=== PATIENT | female | born 1940 | race Hispanic/Latino ===

== ENCOUNTER 2017-08-25 12:42 | Inpatient (IN) | payer MEDICARE, OTHER ==
[~2017-08-25] VITALS: Ht 167.6 cm; Wt 88.1 kg
--- OUTSIDE RECORDS SUMMARY | 2017-08-25 12:45 | XMS REPORT ---
[facility] Address Unknown Phone Unavailable Care Team Providers Care Pipe Stripper Name Role Phone Unavailable Unavailable Problems This patient has no known problems. Allergies, Adverse Reactions, Alerts This patient has no known allergies or adverse reactions. Medications This patient has no known medications. Encounters Start Date/Time End Date/Time Encounter Type Admission Type Attending [facility] Care Department Encounter ID 2017-09-06 00:00:00 2017-09-06 00:00:00 Outpatient [facility] [id number] 2017-09-06 00:00:00 2017-09-06 00:00:00 Outpatient [facility] [id number] 2017-08-31 00:00:00 2017-08-31 00:00:00 Outpatient [facility] [id number] 2017-07-26 00:00:00 2017-07-26 00:00:00 Outpatient [facility] [id number] 2017-07-26 00:00:00 2017-07-26 00:00:00 Outpatient [facility] [id number] 2017-07-21 00:00:00 2017-07-21 00:00:00 Outpatient [facility] [id number] 2017-06-28 00:00:00 2017-06-28 00:00:00 Outpatient [facility] [id number] 2017-06-28 00:00:00 2017-06-28 00:00:00 Outpatient [facility] [id number] 2017-06-23 00:00:00 2017-06-23 00:00:00 Outpatient [facility] [id number] 2017-06-03 08:54:33 2017-06-03 08:54:33 Outpatient [facility] [id number] 2017-06-02 00:00:00 2017-06-02 00:00:00 Outpatient [facility] [id number] 2017-06-02 00:00:00 2017-06-02 00:00:00 Outpatient [facility] [id number] 2017-05-31 17:04:35 2017-05-31 17:04:35 Emergency [facility] [id number] 2017-05-31 15:01:34 2017-05-31 15:01:34 Outpatient [facility] [id number] 2017-05-31 00:00:00 2017-05-31 00:00:00 Emergency [facility] [id number] 2017-05-31 00:00:00 2017-05-31 00:00:00 Emergency [facility] [id number] 2017-05-24 10:22:59 2017-05-24 10:22:59 Outpatient [facility] [id number] 2017-05-03 13:38:41 2017-05-03 13:38:41 Emergency [facility] [id number] 2017-04-28 09:35:09 2017-04-28 09:35:09 Outpatient [facility] [id number] 2017-04-12 00:00:00 2017-04-12 00:00:00 Outpatient [facility] [id number] 2017-04-12 00:00:00 2017-04-12 00:00:00 Outpatient [facility] [id number] 2017-04-12 00:00:00 2017-04-12 00:00:00 Outpatient [facility] [id number] 2017-03-31 16:28:45 2017-03-31 16:28:45 Outpatient [facility] [id number] 2017-03-31 16:04:29 2017-03-31 16:04:29 Outpatient [facility] [id number] 2017-03-10 08:41:17 2017-03-10 08:41:17 Outpatient [facility] [id number] 2017-03-01 00:00:00 2017-03-01 00:00:00 Outpatient [facility] [id number] 2017-03-01 00:00:00 2017-03-01 00:00:00 Outpatient [facility] [id number] 2017-02-25 15:17:23 2017-02-25 15:17:23 Outpatient [facility] [id number] 2017-02-24 09:00:17 2017-02-24 09:00:17 Outpatient [facility] [id number] 2017-01-20 08:52:36 2017-01-20 08:52:36 Outpatient [facility] [id number] 2016-11-30 00:00:00 2016-11-30 00:00:00 Outpatient [facility] [id number] 2016-11-30 00:00:00 2016-11-30 00:00:00 Outpatient [facility] [id number] 2016-11-18 00:00:00 2016-11-18 00:00:00 Outpatient [facility] [id number] 2016-11-12 10:29:35 2016-11-12 10:29:35 Outpatient [facility] [id number] 2016-10-23 07:49:21 2016-10-23 07:49:21 Outpatient [facility] [id number] 2016-10-23 00:00:00 2016-10-23 00:00:00 Outpatient [facility] [id number] 2016-10-07 00:00:00 2016-10-07 00:00:00 Outpatient [facility] [id number] 2016-09-21 14:39:27 2016-09-21 14:39:27 Outpatient [facility] [id number] 2016-09-21 13:43:21 2016-09-21 13:43:21 Outpatient [facility] [id number] 2016-09-21 08:50:16 2016-09-21 08:50:16 Outpatient [facility] [id number] 2016-08-28 07:57:51 2016-08-28 07:57:51 Outpatient [facility] [id number] 2016-08-28 00:00:00 2016-08-28 00:00:00 Outpatient [facility] [id number] 2016-08-24 14:38:35 2016-08-24 14:38:35 Outpatient [facility] [id number] 2016-08-24 13:17:51 2016-08-24 13:17:51 Outpatient [facility] [id number] 2016-08-10 10:01:21 2016-08-10 10:01:21 Outpatient [facility] [id number] 2016-08-07 09:53:20 2016-08-07 09:53:20 Outpatient [facility] [id number] 2016-08-06 08:59:19 2016-08-06 08:59:19 Outpatient [facility] [id number] 2016-07-06 13:26:51 2016-07-06 13:26:51 Outpatient [facility] [id number] 2016-07-03 16:10:21 2016-07-03 16:10:21 Emergency [facility] [id number] 2016-06-30 01:12:28 2016-06-30 01:12:28 Emergency [facility] [id number]
[2017-08-25] MEDS ORDERED: ASPIRIN 81 MG CHEW TAB PO ONE ×2 (13:15→15:30)
--- NOTE | 2017-08-25 13:50 | Diagnostic Imaging Report ---
PROCEDURE:CHEST SINGLE (PORTABLE) TECHNIQUE:Portable AP chest INDICATION:Shortness of breath COMPARISON:None. FINDINGS: Low lung volume with vascular crowding. Upper limits of normal heart size for technique. Normal central vasculature caliber. Intact skeleton. CONCLUSION: No acute abnormality. Dictated by: Peter Naqvi M.D. on 08/25/2017 at 13:52 Electronically approved by: Peter Naqvi M.D. on 08/25/2017 at 13:52
[2017-08-25 14:26] LABS: BASOPHILS % 0.3 % (0.0-1.0); EOSINOPHILS # (AUTO) 0.1 (0.0-0.4); EOSINOPHILS % 1.9 % (0.0-6.0); LYMPHOCYTES # (AUTO) 1.2 (1.0-3.2); MEAN CORPUSCULAR HEMOGLOBIN 31.6 pg (28-32); MEAN CORPUSCULAR HGB CONC 32.6 g/dL (31-35); MEAN CORPUSCULAR VOLUME 96.9 fL (81-99); MONOCYTES # (AUTO) 0.5 (0.2-0.8); MONOCYTES % 14.5 % (4.4-11.3); NEUTROPHILS # (AUTO) 1.9 (2.1-6.9); PLATELET COUNT 105 x10e3/uL (140-360); RED BLOOD COUNT 2.28 x10e6/uL (3.6-5.1); RED CELL DISTRIBUTION WIDTH 17.1 % (11.7-14.4)
[2017-08-25 14:27] LABS: HEMATOCRIT 22.1 % (34.2-44.1); HEMOGLOBIN 7.2 g/dL (12.0-16.0)
[2017-08-25 14:34] LABS: INR 1.22; PROTHROMBIN TIME 14.5 seconds (11.9-14.5)
[2017-08-25 14:35] LABS: PARTIAL THROMBOPLASTIN TIME 51.3 seconds (23.8-35.5)
[2017-08-25 14:39] LABS: ALANINE AMINOTRANSFERASE 19 IU/L (0-55); ALBUMIN 3.3 g/dL (3.5-5.0); ALKALINE PHOSPHATASE 76 IU/L (40-150); ANION GAP 9.4 mmol/L (8-16); BLOOD UREA NITROGEN 17 mg/dL (7-26); BUN/CREATININE RATIO 22 (6-25); CALCIUM 8.5 mg/dL (8.4-10.2); CARBON DIOXIDE 28 mmol/L (22-29); CHLORIDE 107 mmol/L (98-107); CREATINE KINASE 107 IU/L (29-168); CREATININE, SERUM 0.76 mg/dL (0.57-1.11); EST GLOMERULAR FILTRATION RATE > 60 ML/MIN (60-); GLUCOSE 105 mg/dL (74-118); POTASSIUM 4.4 mmol/L (3.5-5.1); SODIUM 140 mmol/L (136-145)
[2017-08-25] MEDS ORDERED: POTASSIUM CHLO10 ME1 PO (16:10)
[2017-08-25] MEDS ORDERED: LISINOPRIL2.5 MG PO (16:10)
[2017-08-25] MEDS ORDERED: LASIX40 MG PO (16:12)
[2017-08-25] MEDS ORDERED: LIPITOR20 MG (16:12)
[2017-08-25 17:15] VITALS: BP 119/54
[2017-08-25 18:16] VITALS: BP 119/54
[2017-08-25 20:00] VITALS: BP 122/58
--- NOTE | 2017-08-25 20:17 | History and Physical ---
CHIEF COMPLAINT: Shortness of breath. HPI: Ms. Kolb is a Kazakh 76-year-old Kazakh-speaking female. She presented to the emergency room with shortness of breath and there, was found to be anemic. She reports the family is with the patient and reported that she had problem with GI bleed in the past and has been worked up at [facility], and also has problem with epistaxis in the past as well. However, right now, she does not have any nasal bleed. She reports that off and on, she has blood in the stool. She denies any nausea, vomiting, diarrhea or focal weakness. REVIEW OF SYSTEMS GENERAL: Denies any fevers, chills. HEAD: Denies any head trauma. ENT: Denies any earaches. CVS: Denies any chest pain. RESPIRATORY: Shortness of breath. GI: Denies any nausea, vomiting. REST OF THE REVIEW SYSTEMS: Negative except as in HPI. PAST MEDICAL HISTORY: Hypertension, hyperlipidemia. PAST SURGICAL HISTORY: None. FAMILY AND SOCIAL HISTORY: She has history of smoking, quit 18 years ago. She smoked for 35+ years. Lives with the family. Denies any family history of heart disease. PHYSICAL EXAM VITAL SIGNS: Temperature 96.5, pulse of 65, blood pressure 119/54, respiratory rate of 18, O2 sat 98% on room air. HEENT: Head atraumatic, normocephalic. NECK: Supple with no JVD. Thyroid not enlarged. CHEST: Clear to auscultation bilaterally. No wheezing. No crackles. HEART: S1, S2 audible. Possible murmur. ABDOMEN: Soft, nontender, nondistended, bowel sounds audible. EXTREMITIES: No clubbing, cyanosis or edema. NEUROLOGIC: Awake and alert. No focal neurologic deficit. LABS: Sodium 140, potassium 4.4, chloride 107. AST 41, ALT 19. White count of 3.6, hemoglobin 7.2, platelets 105,000. Chest x-ray is normal. ASSESSMENT: Ms. Cortes Nick is a 76-year-old female, who presented to the emergency room with shortness of breath. First set of cardiac enzymes negative, likely reason for dyspnea could be anemia. Patient has history of gastrointestinal bleed in the past. Currently, appears to be pancytopenic. Platelet counts are also low. Etiology is not very clear. PLAN 1. GI consult to rule out GI bleed. 2. I will also consult hematology for pancytopenia. 3. Cardiology has been consulted from the emergency room. First set of cardiac enzymes is negative. Will follow cardiac enzymes. Discussed with patient's family at bedside in detail. Job#: [id number] CQ
--- NOTE | 2017-08-25 21:17 | Consultation ---
DATE OF CONSULTATION: August 25, 2017 REFERRING PHYSICIAN: Dr. Jhonatan Mancia. REASON FOR CONSULTATION: 1. Anemia. 2. Recent melena. 3. ANAND liver cirrhosis. HISTORY OF PRESENTING ILLNESS: A 76-year-old speaking female who got admitted today with complaints of easy fatigability, shortness of breath on minimal exertion. Blood work revealed anemia with hemoglobin of 7.2. GI has been consulted for further evaluation and workup for anemia. On further questioning, the patient stated that she was admitted to [facility] in May when she had multiple episodes of melena. She has had upper endoscopy as well as colonoscopy. She does not have the report with her. Most of my history derived through the patient's son who can speak [place]. As per the patient's son, the colonoscopy was negative. Upper endoscopy showed some kind of vein which was ligated. From what he described, it seems like the patient might of had esophageal varices which were banded. The patient was supposed to have a repeat upper endoscopy at [facility] after she was discharged from the hospital. Due to some insurance issues, repeat procedure could not be done in outpatient setting. Per the patient's son, the upper endoscopy is due for surveillance at this time. The patient has no known prior history of peptic ulcer disease. She does not take NSAIDs on a chronic basis. While she was in [facility], she was also told that she has liver cirrhosis. The patient seldom drinks alcohol. Liver cirrhosis is likely related to ANAND. REVIEW OF SYSTEMS: Twelve-point system reviewed. Symptomatology is limited as per HPI. PAST MEDICAL HISTORY: Hypertension, hyperlipidemia, probable congestive heart failure. PAST SURGICAL HISTORY: Recent upper endoscopy and colonoscopy. FAMILY HISTORY: Noncontributory. SOCIAL HISTORY: No smoking, alcohol or any illicit drug use. HOME MEDICATIONS: Atorvastatin, furosemide, lisinopril, potassium chloride. INPATIENT MEDICATION: Atorvastatin, lisinopril, baby aspirin, which was discontinued. ALLERGIES: ACETAMINOPHEN, EXACT ALLERGIC REACTION NOT KNOWN. PHYSICAL EXAMINATION VITAL SIGNS: Temperature 96.5, pulse 65, respirations 16, blood pressure 119/54, oxygen saturation 98% on room air. GENERAL: Not in any acute distress, gross pallor. HEENT: Moist mucous membranes. Anicteric sclerae. CVS: S1 and S2 regular with 3/6 flow murmur at the apex, nonradiating. LUNGS: Bilaterally grossly clear. ABDOMEN: Soft, obese, nondistended, nontender, no palpable mass or hernia, no palpable hepatosplenomegaly, no digitally appreciable shifting dullness. EXTREMITIES: Trace leg edema. LABORATORY DATA: WBC 3.66, hemoglobin 7.2, hematocrit 22.1, MCV 96.9, platelet count 105,000, sodium 140, potassium 4.4, chloride 107, bicarb 28, BUN 17, creatinine 0.76, glucose 105. Liver enzymes showed a total bilirubin of 1.1, AST 41, ALT 19, alkaline phosphatase 76. Troponin negative. PT 14.5. INR 1.22. Chest x-ray no acute cardiopulmonary process. IMPRESSION: Anemia with thrombocytopenia in the setting of ANAND liver cirrhosis, recent melena. Upper endoscopy and colonoscopy performed at [facility] in May, what the patient's son described it seems like the patient has had upper endoscopy and colonoscopy done secondary to recurrent episodes of melena in May. Upper endoscopy, she had some kind of vein ligation in the esophagus, which seems the patient probably had esophageal variceal band ligation. PLAN: As per the patient's son, repeat upper endoscopy is due at this time. Anemia could be due to slow oozing from portal hypertensive gastropathy. At this point in time, the patient does not have any active bleeding, therefore, no point of starting her on any octreotide or Protonix infusion. Will keep her n.p.o. past midnight. Will do upper endoscopy tomorrow. Further recommendations based upon endoscopy findings. Job#: [id number] GH SANTIAGO
[2017-08-25 21:23] VITALS: BP 122/58
[2017-08-25] MEDS: ATORVASTATIN 20 MG TAB PO SCH (21:23)
[2017-08-25 23:09] LABS: CREATINE KINASE MB 1.2 ng/mL (0-5.0)
[2017-08-26] VITALS (16 sets, daily range): BP systolic 100–135; BP diastolic 49–61
[2017-08-26 08:17] LABS: CHOL/HDL RATIO 2.8 (3.0-3.6)
[2017-08-26] MEDS: LISINOPRIL 2.5 MG TAB PO SCH (08:19)
[2017-08-26 09:35] LABS: EOSINOPHILS # (AUTO) 0.1 (0.0-0.4); EOSINOPHILS % 2.9 % (0.0-6.0); LYMPHOCYTES # (AUTO) 1.1 (1.0-3.2); LYMPHOCYTES % 38.2 % (18.0-39.1); MEAN CORPUSCULAR HEMOGLOBIN 31.6 pg (28-32); MEAN CORPUSCULAR HGB CONC 32.4 g/dL (31-35); MEAN CORPUSCULAR VOLUME 97.6 fL (81-99); MONOCYTES # (AUTO) 0.4 (0.2-0.8); MONOCYTES % 14.9 % (4.4-11.3); NEUTROPHILS # (AUTO) 1.2 (2.1-6.9); NEUTROPHILS % 43.6 % (38.7-80.0); PLATELET COUNT 84 x10e3/uL (140-360); RED BLOOD COUNT 2.09 x10e6/uL (3.6-5.1)
[2017-08-26 09:46] LABS: HEMATOCRIT 20.4 % (34.2-44.1); HEMOGLOBIN 6.6 g/dL (12.0-16.0)
[2017-08-26 09:47] LABS: % IRON SATURATION 4 % (15-50); IRON 14 ug/dL (50-170); TOTAL IRON BINDING CAPACITY 337 ug/dL (261-478); TRANSFERRIN 241 mg/dL (180-382)
[2017-08-26] MEDS ORDERED: SODIUM CHLORIDE 0.9% 250ML 250 ML IV ONE (11:30)
[2017-08-26] MEDS ORDERED: FUROSEMIDE INJ 10 MG/ML 2 ML VIAL IV PRN (11:30)
--- NOTE | 2017-08-26 12:56 | Consultation ---
DATE OF CONSULTATION: CARDIOLOGY CONSULTATION ATTENDING PHYSICIAN: Himanshu Brar MD CLINICAL HISTORY: This is a 76-year-old woman admitted via the emergency room because of progressive shortness of breath with the patient found to be pancytopenic with hemoglobin 7.2, white count of 3.6 and platelet count of 105. This patient apparently has history of cirrhosis of the liver status post multiple procedures done in the past. She has been followed at [facility] and in May of this year had banding and sclerosis of the esophageal varices. There is history of previous GI bleeding as well as epistaxis. Additionally 18 years ago she was briefly on dialysis for unknown reasons although her kidneys appear to have recovered since. While she was at [facility] she was told that she had narrowing of the aorta or the aortic valve. Surgery was recommended but the patient declined but at the same time she denies having had a cardiac catheterization. The diagnosis apparently made by CT scan or ultrasound. She has a chronic loud heart murmur. Cardiology consultation requested. PAST MEDICAL HISTORY: Remarkable for hypertension, hyperlipidemia, unclear aortic or aortic valve pathology. PAST SURGICAL HISTORY: Noncontributory. FAMILY HISTORY: Noncontributory. PERSONAL / SOCIAL HISTORY: She rarely drinks. Has not smoked for 18 years. Prior to that she smoked for 35 years. No drug abuse. MEDICATIONS: Now include aspirin, lisinopril, atorvastatin. ALLERGIES: ACETAMINOPHEN. REVIEW OF SYSTEMS: Noncontributory. PHYSICAL EXAMINATION GENERAL: She is alert, coherent, appears to be comfortable. CARDIAC: Jugular veins were not distended. S1, S2 were regular. There is a 3/6 pansystolic murmur heard throughout the anterior chest even into the lateral chest. ABDOMEN: Soft. Bowel sounds are present. EXTREMITIES: No cyanosis, clubbing or edema. LABORATORY DATA: The electrocardiogram was normal. Chest x-ray, please see the report. IMPRESSION 1. Shortness of breath likely to be related to anemia with possibility of valvular pathology contributing. 2. Loud heart murmur. Consider aortic stenosis as well as possible mitral valvular pathology. 3. Unclear history of "bend in the aortic vein." 4. Pancytopenia possibly related to cirrhosis. 5. History of gastrointestinal bleeding status post sclerosis of esophageal varices and banding. 6. Cirrhosis of the liver. 7. Hypertension. 8. Distant history of dialysis 18 years ago with renal function that appears to have complete recovery. RECOMMENDATION: Echocardiogram to assess aortic and mitral valves. Consider old records review from [facility] including the CT scan with particular attention to the aorta. Iron TIBC may be helpful. ION LEWIS MD Job#: [id number] DG cc:KATHLEEN FLOR M.D.
[2017-08-26] MEDS ORDERED: PROPOFOL IV EMULSION 10 MG/ML 20 ML VIAL ONE (18:52)
[2017-08-26] MEDS ORDERED: LIDOCAINE HCL 2% LOCAL INJ 5 ML SDV VIAL INJ ONE (18:52)
[2017-08-26] MEDS: ATORVASTATIN 20 MG TAB PO SCH (21:50)
[2017-08-27] VITALS: BP 120/58
[2017-08-27 00:35] VITALS: BP 129/58
[2017-08-27 04:00] VITALS: BP 112/56
[2017-08-27 06:55] LABS: BASOPHILS % 0.3 % (0.0-1.0); EOSINOPHILS # (AUTO) 0.1 (0.0-0.4); EOSINOPHILS % 2.7 % (0.0-6.0); HEMATOCRIT 25.9 % (34.2-44.1); HEMOGLOBIN 8.5 g/dL (12.0-16.0); LYMPHOCYTES % 31.7 % (18.0-39.1); MEAN CORPUSCULAR HEMOGLOBIN 29.3 pg (28-32); MEAN CORPUSCULAR HGB CONC 32.8 g/dL (31-35); MEAN CORPUSCULAR VOLUME 89.3 fL (81-99); MONOCYTES # (AUTO) 0.5 (0.2-0.8); MONOCYTES % 14.9 % (4.4-11.3); NEUTROPHILS # (AUTO) 1.7 (2.1-6.9); NEUTROPHILS % 50.4 % (38.7-80.0); PLATELET COUNT 72 x10e3/uL (140-360); RED CELL DISTRIBUTION WIDTH 21.3 % (11.7-14.4)
[2017-08-27 07:07] LABS: ANION GAP 7.9 mmol/L (8-16); BLOOD UREA NITROGEN 13 mg/dL (7-26); BUN/CREATININE RATIO 20 (6-25); CALCIUM 8.3 mg/dL (8.4-10.2); CARBON DIOXIDE 26 mmol/L (22-29); CHLORIDE 101 mmol/L (98-107); CREATININE, SERUM 0.65 mg/dL (0.57-1.11); EST GLOMERULAR FILTRATION RATE > 60 ML/MIN (60-); GLUCOSE 90 mg/dL (74-118); POTASSIUM 3.9 mmol/L (3.5-5.1); SODIUM 131 mmol/L (136-145)
[2017-08-27] MEDS: LISINOPRIL 2.5 MG TAB PO SCH (08:12)
[2017-08-27 08:19] VITALS: BP 114/53
--- NOTE | 2017-08-27 10:15 | Cardiology Report ---
DATE OF STUDY: August 26, 2017 ECHOCARDIOGRAM M-MODE: Moderately dilated left atrium. Left ventricular hypertrophy. Normal contractility. Aortic stenosis and mitral stenosis. Sclerosis of mitral valve annulus. No pericardial effusion. SECTOR SCAN: Moderately dilated left atrium. Aortic root size is normal. Left ventricular contractility is normal. Ejection fraction is 65%. Aortic valve is stenotic. Mitral valve is stenotic. Mitral annular sclerosis. Normal tricuspid valve. No pericardial effusion. CARDIAC DOPPLER STUDY WITH COLOR: The peak aortic velocity is 4.3 meters per second, and the mitral valve area is calculated at 1.6 cm squared. There is trace tricuspid regurgitation. CONCLUSIONS 1. Severe aortic stenosis with aortic velocity of 4.3 meters per second with mild aortic regurgitation. 2. The aortic root size is still in normal range. 3. Moderate mitral stenosis with mitral valve area calculated at 1.6 cm squared with moderately dilated left atrium. 4. Mitral annular sclerosis. 5. Trace tricuspid regurgitation. 6. Left ventricular hypertrophy with ejection fraction of approximately 65%. Job#: [id number] cc:JIMI AMEZCUA MD
--- NOTE | 2017-08-27 13:01 | Consultation ---
DATE OF CONSULTATION: August 25, 2017 HEMATOLOGY-ONCOLOGY PROGRESS NOTE REQUESTING PHYSICIAN: Dr. Jhonatan Mancia. REASON FOR CONSULTATION: Evaluation and management of patient with anemia. HISTORY OF PRESENTING ILLNESS: Ms. Kolb is a 76-year-old, very pleasant -speaking female with known history of hypertension, hyperlipidemia and congestive heart failure, admitted through the emergency department due to the progressive shortness of breath. In the emergency department she was noted to have severe anemia with hemoglobin down to 7.2. She was seen and evaluated by gastroenterology service, and hematology-oncology has been consulted to assist with the management. PAST MEDICAL HISTORY 1. Hypertension. 2. Hyperlipidemia. 3. Congestive heart failure. PAST SURGICAL HISTORY: Recent upper endoscopy and colonoscopy with negative result., FAMILY HISTORY: Noncontributory. SOCIAL HISTORY: Denies history of smoking, alcohol use or illicit drug use. HOME MEDICATION: Reviewed and as per electronic medical record. ALLERGIES: ACETAMINOPHEN. SYSTEM REVIEW: A 14-point review of systems negative except as mentioned above in history of presenting illness. PHYSICAL EXAMINATION VITAL SIGNS: Reviewed and as per electronic medical record. HEENT: PERRLA. Extraocular movements are intact. Head atraumatic, normocephalic. NECK: Supple. CVS: S1/S2 audible. RESPIRATORY: Decreased bilateral air entry. ABDOMEN: Soft. Positive bowel sounds. EXTREMITIES: Negative edema. NEURO: Patient is alert, awake. LABORATORY DATA: Reviewed and as per electronic medical record. ASSESSMENT AND PLAN: Ms. Kolb is a very pleasant 76-year-old -speaking female with known history of hypertension, hyperlipidemia and congestive heart failure, presented to the emergency department due to a progressive shortness of breath. She is noted to have severe anemia. Hematology-oncology has been consulted to assist with the management. I have reviewed the record, and overall this appeared to be iron deficiency anemia. At this point, recommendation would be to proceed forward with a 2-unit of PRBC transfusion. GI already has been consulted with the plan to have endoscopy. If she goes home, will follow up as an outpatient. Job#: [id number] EV
[2017-08-27 16:00] VITALS: BP 115/57
--- NOTE | 2017-08-27 18:36 | Discharge Summary ---
FINAL DIAGNOSES 1. Cirrhosis of liver. 2. Anemia, esophagogastroduodenoscopy showing portal gastropathy and varices. 3. Iron deficiency anemia. 4. History of hypertension. ADMISSION HISTORY AND HOSPITAL COURSE: Ms. Kolb is a 76-year-old female who presented with shortness of breath, found to be anemic. Patient's hemoglobin was 6. GI and Hematology were consulted. Patient was transfused. Hematology recommended the patient has iron deficiency anemia. GI note reviewed. Dr. Wayne evaluated the patient, recommended the patient has ANAND and cirrhosis of liver, which has been diagnosed at [facility]. Her hemoglobin is stable. She is doing well. 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 She will be discharged home to follow up with Hematology and GI, and she will also follow up with her primary care physician. Discharge medication list reviewed. KATHLEEN FLOR MD Job#: [id number] EV
== END 2017-08-27 18:59 | disposition home or self-care (01) | DRG 442 ==
LOC: ER 12:42 → ERHOLD 15:50 → MED/SURG 16:32
PROVIDERS: ADMIT Internal Medicine Pulmonary Disease; ATTEND Internal Medicine Pulmonary Disease
PROC: 0DB78ZX Excision of Stomach, Pylorus, Via Natural or Artificial Opening Endoscopic, Diagnostic (ICD-10-PCS; 2017-08-26)
PROC: 30233N1 Transfusion of Nonautologous Red Blood Cells into Peripheral Vein, Percutaneous Approach (ICD-10-PCS; 2017-08-26)
PROC: 0DB68ZX Excision of Stomach, Via Natural or Artificial Opening Endoscopic, Diagnostic (ICD-10-PCS; principal; 2017-08-26 11:15)
DX: K75.81 Nonalcoholic steatohepatitis (NASH) (principal); D61.818 Other pancytopenia; K76.6 Portal hypertension; D62 Acute posthemorrhagic anemia; D50.0 Iron deficiency anemia secondary to blood loss (chronic); R07.9 Chest pain, unspecified; K22.2 Esophageal obstruction; K44.9 Diaphragmatic hernia without obstruction or gangrene; K29.70 Gastritis, unspecified, without bleeding; I10 Essential (primary) hypertension; E78.5 Hyperlipidemia, unspecified; I50.9 Heart failure, unspecified; K31.89 Other diseases of stomach and duodenum
CPT/HCPCS: 36415; 43235; 71045; 80048; 80053; 80061; 82550; 82553; 83540; 84466; 84484; 85025; 85610; 85730; 86850; 86900; 86920; 88304; 88305; 88312; 93005; 93306; 99284; J2001; J7050; P9016

== ENCOUNTER → 2018-05-13 | Outpatient (CLI) | payer OTHER ==
[~2018-05-13] MED LIST: LASIX40 MG PO; LIPITOR20 MG; LISINOPRIL2.5 MG PO; POTASSIUM CHLO10 ME1 PO
--- NOTE | 2018-05-13 10:53 | Diagnostic Imaging Report ---
EXAM: US ABDOMEN COMPLETE DATE: 05/13/2018 9:32 AM INDICATION: Cirrhosis COMPARISON: None FINDINGS: Grayscale and color flow Doppler ultrasound of the abdomen was performed. Liver: 11.5 cm span. Mildly nodular hepatic contour suggesting cirrhosis. No intrahepatic mass or bile duct dilatation. Main portal vein 1.3 cm, nondilated, normal hepatopetal flow. Spleen: 11.8 cm span, no splenomegaly. Pancreas: Visualized portions of the pancreas show no mass or duct dilatation. Biliary: There are multiple shadowing filling defects at the gallbladder neck. No gallbladder wall thickening or pericholecystic fluid. Sonographic Lugo sign negative. Common bile duct 0.6 cm, normal. Right kidney: 9.0 x 4.6 x 5.1 cm. Normal cortical echogenicity. There is a cyst at the midportion of the kidney measure 1.6 x 1.2 x 1.2 cm. No hydronephrosis. Left kidney: 11.0 x 5.7 x 4.0 cm. Normal cortical echogenicity. No hydronephrosis or contour deforming mass. Vessels: Visualized portions of aorta and IVC unremarkable. Ascites: There is a small volume of ascites, with the most prominent pocket in the right upper quadrant of the abdomen. IMPRESSION: 1. No sonographic evidence for acute abdominal pathology. 2. Cirrhotic morphology of the liver. No discrete hepatic mass or dilatation of the biliary tree. 3. Cholelithiasis with no sonographic evidence for cholecystitis. 4. Small volume of ascites. Signed by: Dr. Terry Persaud M.D. on 05/13/2018 10:50 AM
== END ==
LOC: US 09:24
PROVIDERS: ATTEND Internal Medicine Gastroenterology
DX: K74.60 Unspecified cirrhosis of liver (principal); I10 Essential (primary) hypertension; E66.3 Overweight; Z71.3 Dietary counseling and surveillance
CPT/HCPCS: 76700

== ENCOUNTER 2019-02-13 14:07 | Inpatient (IN) | payer MEDICARE, OTHER ==
[~2019-02-13] VITALS: Ht 167.6 cm; Wt 80.4 kg
[~2019-02-13 14:07] MED LIST changes: -LEVAQUIN500 MG PO; -MAGNESIUM OXID400 MG PO; -OMEPRAZOLE40 MG PO; -PROPRANOLOL HCL20 MG PO; -SPIRONOLACTONE25 MG PO
[2019-02-13 15:22] LABS: BASOPHILS % 0.2 % (0.0-1.0); EOSINOPHILS % 0.2 % (0.0-6.0); HEMATOCRIT 29.6 % (34.2-44.1); HEMOGLOBIN 9.8 g/dL (12.0-16.0); LYMPHOCYTES # (AUTO) 1.4 (1.0-3.2); LYMPHOCYTES % 7.2 % (18.0-39.1); MEAN CORPUSCULAR HEMOGLOBIN 34.5 pg (28-32); MEAN CORPUSCULAR HGB CONC 33.1 g/dL (31-35); MEAN CORPUSCULAR VOLUME 104.2 fL (81-99); MONOCYTES % 10.3 % (4.4-11.3); NEUTROPHILS # (AUTO) 15.9 (2.1-6.9); NEUTROPHILS % 80.8 % (38.7-80.0); RED BLOOD COUNT 2.84 x10e6/uL (3.6-5.1); RED CELL DISTRIBUTION WIDTH 20.6 % (11.7-14.4)
[2019-02-13 15:29] LABS: PLATELET COUNT 37 x10e3/uL (140-360)
[2019-02-13 15:32] LABS: INR 1.34; PROTHROMBIN TIME 17.2 seconds (11.9-14.5)
[2019-02-13 15:43] LABS: ALBUMIN 2.4 g/dL (3.5-5.0); ALBUMIN/GLOBULIN RATIO 0.5 (0.8-2.0); ANION GAP 14.7 mmol/L (8-16); CALCIUM 8.4 mg/dL (8.4-10.2); CREATININE, SERUM 1.69 mg/dL (0.57-1.11); POTASSIUM 3.7 mmol/L (3.5-5.1)
--- NOTE | 2019-02-13 15:44 | NUR ---
LANGUAGE LINE USED TO INFORM PT. OF THE NEED FOR A URINE SPECIMEN. PT. HAS VERBALIZED UNDERSTANDING
[2019-02-13 15:49] LABS: CREATINE KINASE MB 0.9 ng/mL (0-5.0)
--- NOTE | 2019-02-13 16:26 | Diagnostic Imaging Report ---
EXAM: CT Abdomen and Pelvis WITHOUT intravenous contrast INDICATION: Abdominal pain COMPARISON: None. TECHNIQUE: Abdomen and pelvis were scanned utilizing a multidetector helical scanner from the lung base to the pubic symphysis without administration of IV contrast. Coronal and sagittal reformations were obtained. IV CONTRAST: None ORAL CONTRAST: Water COMPLICATIONS: None RADIATION DOSE: Total DLP: 769.6 mGy*cm Dose modulation, iterative reconstruction, and/or weight based adjustment of the mA/kV was utilized to reduce the radiation dose to as low as reasonably achievable. FINDINGS: LOWER THORAX: Mild bibasilar dependent subsegmental atelectasis. Coronary artery atherosclerotic calcifications. Aortic valve prosthesis. HEPATOBILIARY: Severely cirrhotic shrunken liver. No focal liver lesion. Mildly distended gallbladder measuring up to 5.3 cm in diameter. Cholelithiasis without CT evidence of cholecystitis. SPLEEN: No splenomegaly. PANCREAS: No focal masses or ductal dilatation. ADRENALS: No adrenal nodules. KIDNEYS/URETERS: Nonobstructive 2 mm left lower pole renal calculus. No hydronephrosis or hydroureter. PELVIC ORGANS/BLADDER: Unremarkable. PERITONEUM / RETROPERITONEUM: Large volume ascites in the abdomen and pelvis. LYMPH NODES: Prominent gastrohepatic lymph nodes not meeting size criteria for lymphadenopathy. VESSELS: Diffuse atherosclerotic calcifications of the nonaneurysmal abdominal aorta and major branches. GI TRACT: Diverticulosis without CT evidence of diverticulitis. No abnormal bowel thickening. No bowel obstruction. Reported history of appendectomy. BONES AND SOFT TISSUES: No acute osseous injury. No suspicious lytic or blastic lesions. Degenerative changes of the visualized spine. Diffuse subcutaneous soft tissue edema. IMPRESSION: Severely cirrhotic liver and large volume ascites, compatible with portal hypertension. Diverticulosis without CT evidence of diverticulitis. Cholelithiasis without specific CT evidence of cholecystitis. Diffuse atherosclerotic arterial calcifications including of the coronary arteries. Nonobstructive 2 mm left lower pole renal calculus. Signed by: Anastasia Canales MD on 02/13/2019 4:22 PM
[2019-02-13] MEDS ORDERED: CEFTRIAXONE SOD 1 GM/NS 50 ML 50 ML IV ONE (16:30)
--- NOTE | 2019-02-13 16:59 | NUR ---
LANGUAGE LINE USED TO UPDATE PT ON POC/PENDING ADMIT TO HOSPITAL
--- NOTE | 2019-02-13 17:01 | NUR ---
PT'S PCP IS DR. KEKE BOWEN; LANGUAGE LINE USED
[2019-02-13] MEDS ORDERED: CEFTRIAXONE SOD 1 GM/NS 50 ML 50 ML IV SCH (17:30)
--- NOTE | 2019-02-13 17:31 | Diagnostic Imaging Report ---
EXAMINATION: CHEST SINGLE (PORTABLE) INDICATION: Shortness of breath COMPARISON: None FINDINGS: LINES/TUBES:EKG leads overlie the chest. LUNGS:The lung volumes are low. No focal consolidation or natanael pulmonary edema. PLEURA:No pleural effusion or pneumothorax. MEDIASTINUM:The cardiomediastinal silhouette appears normal in size and shape. Atherosclerotic calcifications of the thoracic aorta. BONES/SOFT TISSUES:No acute osseous injury. ABDOMEN:No free air under the diaphragm. IMPRESSION: Low lung volumes. No focal pneumonia or pulmonary edema. Signed by: Anastasia Canales MD on 02/13/2019 5:28 PM
--- NOTE | 2019-02-13 18:44 | Diagnostic Imaging Report ---
EXAM: Complete Abdominal Ultrasound INDICATION: ^PAIN COMPARISON: CT abdomen and pelvis 02/13/2019 TECHNIQUE: Transverse and longitudinal images of the upper abdomen were obtained. FINDINGS: Liver: Size: 13.6 cm in the right midclavicular line, normal Appearance: Increased echogenicity, nodular contour Mass: No focal masses Spleen: Size: 10.8 cm in length, normal Echogenicity: Normal Mass: No focal masses Gallbladder: Stones/Sludge: Few subcentimeter stones. Small amount of sludge. Echogenic foci in the gallbladder measuring 1.2 cm may represent a gallstone or a polyp when compared to earlier CT. Wall: 0.6 cm Appearance: Mild wall thickening. No pericholecystic fluid or hydrops. Sonographic Lugo's Sign: Negative Bile Ducts: Intrahepatic Ducts: No dilatation Extrahepatic Ducts: Common bile duct measures 0.4 cm, no dilatation Pancreas: Not well visualized Kidneys: Length: Right 8.4 cm Left 9.4 cm Echogenicity: Normal Collecting System: No hydronephrosis Stone: The tiny stone in the left kidney noted on earlier CT is not well-seen on this exam. Cyst/Mass: None Vessels: Aorta: Visualized portions are normal Inferior Vena Cava: Visualized portions are normal Main Portal Vein: 1.2 cm, normal size with hepatopetal flow. Free Fluid: Small to moderate ascites. IMPRESSION: Cirrhotic liver morphology with associated small to moderate ascites. Cholelithiasis without cholecystitis. Nonspecific mild wall thickening of the gallbladder likely related to hypoproteinemia. A 1.2 cm echogenic foci in the gallbladder likely represents a gallstone, differential diagnosis include a polyp. This can be follow-up in 6 months with right upper quadrant ultrasound. Signed by: Dr. Esther Iqbal M.D. on 02/13/2019 6:41 PM
[2019-02-13 19:25] LABS: BILIRUBIN,URINE SMALL (NEGATIVE); CLARITY,URINE SL CLOUDY (CLEAR); KETONES,URINE NEGATIVE (NEGATIVE); LEUKOCYTE ESTERASE ,URINE TRACE (NEGATIVE); NITRITE,URINE NEGATIVE (NEGATIVE); PROTEIN,URINE DIPSTICK TRACE (NEGATIVE); URINE UROBILINOGEN 0.2 mg/dL (0.2 - 1)
[2019-02-13 19:26] LABS: COLOR,URINE AMBER (YELLOW)
[2019-02-13 19:32] LABS: BACTERIA,URINE MODERATE /HPF; EPITHELIAL CELLS,URINE MODERATE /LPF; WBC,URINE (MAN) 0-5 /HPF (0-5)
[2019-02-13 21:30] VITALS: BP 102/53
--- NOTE | 2019-02-13 21:31 | NUR ---
patient received to room 285 via stretcher from the emergency room at this time. vss. no c/o pain noted. admit assessment/history complete. lrg drk bruise noted to middle lower back that extends to right side. family noted at the bedside. patient and family instructed to call for assistance when needed.
[2019-02-13 22:08] VITALS: BP 102/53
--- NOTE | 2019-02-13 22:25 | NUR ---
family to bring home medication list in am.
[2019-02-13 23:45] VITALS: BP 110/60
[2019-02-14] VITALS (9 sets, daily range): BP systolic 93–154; BP diastolic 46–66
--- NOTE | 2019-02-14 | NUR ---
patient appears to be resting quietly. no c/o pain noted. remains at patients bedside.
--- NOTE | 2019-02-14 04:00 | NUR ---
patient oob to chair with assistance. no c/o pain noted. remains at patients side.
[2019-02-14 05:28] LABS: BASOPHILS % 0.1 % (0.0-1.0); EOSINOPHILS % 0.2 % (0.0-6.0); HEMATOCRIT 23.1 % (34.2-44.1); HEMOGLOBIN 7.9 g/dL (12.0-16.0); LYMPHOCYTES # (AUTO) 1.2 (1.0-3.2); LYMPHOCYTES % 8.5 % (18.0-39.1); MEAN CORPUSCULAR HEMOGLOBIN 34.5 pg (28-32); MEAN CORPUSCULAR HGB CONC 34.2 g/dL (31-35); MEAN CORPUSCULAR VOLUME 100.9 fL (81-99); MONOCYTES # (AUTO) 1.8 (0.2-0.8); MONOCYTES % 12.6 % (4.4-11.3); NEUTROPHILS % 77.7 % (38.7-80.0); RED BLOOD COUNT 2.29 x10e6/uL (3.6-5.1); RED CELL DISTRIBUTION WIDTH 19.9 % (11.7-14.4)
[2019-02-14 05:40] LABS: PLATELET COUNT 22 x10e3/uL (140-360)
--- NOTE | 2019-02-14 05:43 | NUR ---
plts 22 this am. Lee Ann Jarrett NP on the unit and notified of this at this time.
[2019-02-14 05:45] LABS: ANION GAP 12.7 mmol/L (8-16); CALCIUM 7.9 mg/dL (8.4-10.2); CREATININE, SERUM 1.57 mg/dL (0.57-1.11); POTASSIUM 3.7 mmol/L (3.5-5.1)
[2019-02-14] MEDS ORDERED: HYDRALAZINE HCL 20 MG/ML VIAL IV PRN (06:15)
[2019-02-14] MEDS ORDERED: ACETAMINOPHEN 325 MG TAB PO PRN (06:15)
--- NOTE | 2019-02-14 07:10 | NUR ---
PATIENT IN BED RESTING WITH NO S/S OF DISTRESS. TELEMETRY IN PLACE, BRUISES TO LOWER BACK RADIATING TO RIGHT ABDOMEN. BED IN LOWER POSITION, CALL LIGHT AT REACH.
[2019-02-14] MEDS: SPIRONOLACTONE 25 MG TAB PO SCH (09:00)
[2019-02-14] MEDS: FUROSEMIDE 40 MG TAB PO SCH ×2 (09:00→17:00)
--- NOTE | 2019-02-14 09:25 | NUR ---
ASSESSMENT: Spiritual distress Pt experiencing pain and unable to converse. Pt's states they are "waiting on doctor's visit." Intervention: Provided hospitality and information on how to reach invoice control clerk, if needed. Outcome: Pt's expressed appreciation for visit. KAHLIL COHEN Supervisor [employer]ging Spiritual Care Department O: [phone] Pager: [phone] ([phone] number calling from)
--- NOTE | 2019-02-14 09:40 | NUR ---
HENNA NOTIFIED OF PLATELET COUNT AT 22. DR. HO CALLED AND NOTIFIED OF PLATELET COUNT AND ORDERS RECEIVED FOR 1 JUMBO PLATELET TO BE INFUSED THEN PARACENTESIS AFTER WITHOUT RECHECK OF PLATELET.
[2019-02-14] MEDS ORDERED: SPIRONOLACTONE25 MG PO (11:47)
[2019-02-14] MEDS ORDERED: LEVAQUIN500 MG PO (11:47)
[2019-02-14] MEDS ORDERED: PROPRANOLOL HCL20 MG PO (11:47)
[2019-02-14] MEDS ORDERED: OMEPRAZOLE40 MG PO (11:47)
[2019-02-14] MEDS ORDERED: MAGNESIUM OXID400 MG PO (11:47)
[2019-02-14] MEDS ORDERED: SODIUM CHLORIDE 0.9% 250ML 250 ML ONE (13:01)
--- NOTE | 2019-02-14 14:43 | NUR ---
PLATELET INFUSION COMPLETE AT 1354. PT FAMILY REPORTS PATIENT HAS CHILLS AT 1437. PATIENTS TEMPERATURE 100.2. DANIELA AGUILLON NOTIFIED AT THIS TIME. TYLENOL GIVEN ORDERED. WILL CONTINUE TO MONITOR PT. WILL RECHECK TEMP IN 30 MINUTES.
--- NOTE | 2019-02-14 15:16 | NUR ---
30 MINUTE TEMP RECHECK COMPLETED. TEMPERATURE CURRENTLY 100.5.
--- NOTE | 2019-02-14 15:20 | NUR ---
DANIELA AGUILLON MADE AWARE OF TRANSFUSION REACTION. WILL CONTINUE TO MONITOR PATIENT CLOSELY. NO NEW ORDERS RECEIVED. LAB NOTIFIED OF REACTION. TRANSFUSION REACTION FORM COMPLETED AND TAKEN TO LAB.
[2019-02-14] MEDS ORDERED: SODIUM CHLORIDE 0.9% 500ML 500 ML ONE (15:51)
--- NOTE | 2019-02-14 16:15 | NUR ---
CURRENT VITAL SIGNS TEMP 99.5, BP 103/57, HR 106, O2 96%, RR 17. WILL CONTINUE TO MONITOR. PT DAUGHTER CONTINUES TO BE PRESENT AT BEDSIDE. CALL LIGHT IS IN REACH.
[2019-02-14] MEDS: CEFTRIAXONE SOD 1 GM/NS 50 ML 50 ML IV SCH (17:18)
--- NOTE | 2019-02-14 19:30 | NUR ---
Patient received awake, alert, lying quietly in bed. vss. no c/o pain noted. pm assessment complete. family noted at the bedside. patient/family instructed to call for assistance when needed.
[2019-02-14] MEDS: ATORVASTATIN 20 MG TAB PO SCH (20:37)
[2019-02-14 22:21] LABS: BILIRUBIN,URINE SMALL (NEGATIVE); CLARITY,URINE SL CLOUDY (CLEAR); COLOR,URINE STRAW (YELLOW); KETONES,URINE TRACE (NEGATIVE); LEUKOCYTE ESTERASE ,URINE NEGATIVE (NEGATIVE); NITRITE,URINE NEGATIVE (NEGATIVE); PROTEIN,URINE DIPSTICK TRACE (NEGATIVE); URINE UROBILINOGEN 0.2 mg/dL (0.2 - 1)
[2019-02-14 22:48] LABS: BACTERIA,URINE MODERATE /HPF; EPITHELIAL CELLS,URINE FEW /LPF; MUCUS,URINE FEW (RARE); TRANSITIONAL EPI CELLS,URINE FEW
[2019-02-15] VITALS (8 sets, daily range): BP systolic 81–127; BP diastolic 51–64
--- NOTE | 2019-02-15 00:30 | NUR ---
here to see patient. new orders noted.
--- NOTE | 2019-02-15 02:30 | NUR ---
am labs drawn at this time and sent to lab.
[2019-02-15 02:40] LABS: BASOPHILS % 0.1 % (0.0-1.0); EOSINOPHILS % 0.2 % (0.0-6.0); HEMATOCRIT 23.5 % (34.2-44.1); HEMOGLOBIN 7.8 g/dL (12.0-16.0); LYMPHOCYTES # (AUTO) 1.3 (1.0-3.2); LYMPHOCYTES % 8.1 % (18.0-39.1); MEAN CORPUSCULAR HEMOGLOBIN 35.1 pg (28-32); MEAN CORPUSCULAR HGB CONC 33.2 g/dL (31-35); MONOCYTES # (AUTO) 1.5 (0.2-0.8); MONOCYTES % 9.8 % (4.4-11.3); NEUTROPHILS # (AUTO) 12.5 (2.1-6.9); NEUTROPHILS % 80.6 % (38.7-80.0); PLATELET COUNT 69 x10e3/uL (140-360); RED BLOOD COUNT 2.22 x10e6/uL (3.6-5.1); RED CELL DISTRIBUTION WIDTH 20.3 % (11.7-14.4)
[2019-02-15 02:41] LABS: MEAN CORPUSCULAR VOLUME 105.9 fL (81-99)
[2019-02-15 03:22] LABS: ANION GAP 11.9 mmol/L (8-16); CALCIUM 7.9 mg/dL (8.4-10.2); CREATININE, SERUM 1.73 mg/dL (0.57-1.11); MAGNESIUM 1.7 MG/DL (1.3-2.1); POTASSIUM 3.9 mmol/L (3.5-5.1)
[2019-02-15 03:41] LABS: FERRITIN 335.02 ng/mL (4.63-204.00)
--- NOTE | 2019-02-15 06:00 | NUR ---
fluid to be sent for gram stain, c+s, wbc count, albumin, and cytology following paracentesis per orders. written orders for this was given to Matthieu in the lab. Matthieu agreed to place the orders in the computer. copy of the orders and the pathology form was placed on front of the chart. will pass this information on to day shift nurse.
--- NOTE | 2019-02-15 07:30 | NUR ---
pt in bed sleeping no s/s discomfort, at bedside
--- NOTE | 2019-02-15 11:58 | Diagnostic Imaging Report ---
Procedure: Ultrasound-guided paracentesis gas generator operator: Vasyl Liu M.D. Pre-operative diagnosis: Ascites Post-operative diagnosis: Ascites Conscious Sedation: None. The patient's heart rate and pulse oximetry were continuously monitored by the IR nurse. Additional Medications: Lidocaine 1% for local anesthesia Estimated blood loss: Less than 1 cc. Specimen: 5200 cc of yellow fluid Implants: None TECHNIQUE/FINDINGS: Informed consent was obtained from the patient and documented in the medical record. The patient was placed in the supine position. Initial ultrasound demonstrated ascites. The right lower abdomen was prepped and draped in standard sterile fashion. 1% lidocaine was infiltrated into the skin and subcutaneous tissues for local anesthesia. Then under continuous sonographic guidance, a 5 Fr catheter was advanced into the peritoneal space. The catheter was connected to vacuum bottle with subsequent evacuation of 5200 cc of serous fluid. The catheter was removed and sterile dressing was applied. Sample was sent to the lab. The patient tolerated the procedure well. IMPRESSION: Successful ultrasound-guided paracentesis. Signed by: Vasyl Liu on 02/15/2019 11:55 AM
[2019-02-15] MEDS: FUROSEMIDE 40 MG TAB PO SCH ×2 (12:30→17:00)
[2019-02-15] MEDS: SPIRONOLACTONE 25 MG TAB PO SCH (12:30)
[2019-02-15 13:02] LABS: BODY FLUID APPEARANCE SL.CLOUDY; BODY FLUID COLOR YELLOW; BODY FLUID TYPE PERITONEAL
[2019-02-15 13:07] LABS: RBC,BODY FLUID 176 cells/uL; WBC,BODY FLUID 77 cells/uL
--- NOTE | 2019-02-15 15:00 | NUR ---
PT RESTING QUIETLY IN BED AT THIS TIME. FAMILY AT BEDSIDE.
[2019-02-15 15:19] LABS: BASOPHILS,BODY FLUID 1 %; LYMPHOCYTES,BODY FLUID 16 %; MONO/MACROPHG,BODY FLUID 6 %; NEUTROPHILS,BODY FLUID 46 %; OTHER CELLS,BODY FLUID 31 %
--- NOTE | 2019-02-15 16:15 | NUR ---
PT UP WITH PHY THERAPY ABLE T AMBULATE 150 WITH WALKER.
[2019-02-15] MEDS: CEFTRIAXONE SOD 1 GM/NS 50 ML 50 ML IV SCH (17:00)
--- NOTE | 2019-02-15 18:35 | NUR ---
Nutrition Intervention Note RD Recommendation(s) for Physician: The patient meets criteria for unspecified SEVERE protein-calorie malnutrition. -Ensure Enlive BID -Continue current diet Plan of Care: RD following, monitoring for tolerance and adequacy Nutrition reason for involvement: [facility] RD Assessment (02/15/19) Pt is a 78 year old female admitted with abdominal pain. Pt was sleeping at time of visit; therefore, spoke to family member. Family member reported that pt has been eating < 50% of meals for the past 2-3 months. Per documentation, pt has been eating 0-75% of meals during admission. Family member also mentioned pt had lost wt and used to weigh 195 lbs in September. Pt currently has a wt of 165 lbs in chart. If accurate, this would be a 15% wt loss in 4 months severe wt loss. Pt usually drinks Ensure 2x/day. Will continue to monitor. No chewing/swallowing issues noted. Principal Problems/Diagnoses: abdominal pain PMH: HTN, HLD, CHF GI: soft, large, distended Skin: no pressure ulcers Labs: (02/15/19) Na 130, BUN 34, Creat 1.73, Ca 7.9 Meds: (02/15/19) lasix, spironolactone, atorvastatin, zofran Ht: 66 inches Wt: 165 lbs BMI: 26.6 kg/m2 IBW: 130 lbs Malnutrition Evaluation (02/15/19) The patient meets criteria for unspecified SEVERE protein-calorie malnutrition. Energy intake: <75% of estimated energy requirements for >1 month Weight loss: 15% wt loss in 4 months Fat loss: unable to evaluate, Muscle loss: unable to evaluate, Supporting Evidence: Fluid accumulation: unable to evaluate Functional Status: unable to evaluate Nutrition Prescription (Diet Order): 2 gm Na diet Estimated Nutritional Needs: 0964-8316 calories/day (18-20 kcal/kg CBW) 75-113 g protein/day (1-1.5 g pro/kg CBW) Diet Adequacy: Not meeting calorie needs, Not meeting protein needs Tolerance: Tolerating PO Diet Education Needs Assessment: RD is available for diet education as needed Nutrition Care Level: moderate Nutrition Diagnosis: Severe protein calorie malnutrition related to chronic illness as evidenced by pt meeting <75% of energy needs > 1 month and 15% wt loss in 4 months per family members statements. Goal: Patient will meet 75-100% of estimated needs by follow up Progress: N/A Interventions: Sodium-modified diet, Commercial beverage Monitoring/Evaluation: -Total energy intake, Total protein intake, Modified diet, Liquid supplement, Weight change Signed: Dennise Oconnell RD, LD
--- NOTE | 2019-02-15 19:10 | NUR ---
Received bedside report from day nurse. Patient resting in bed, no s/s of distress or c/o pain at this time. All safety measures in place. Family at bedside. Will continue to monitor.
[2019-02-15] MEDS: ATORVASTATIN 20 MG TAB PO SCH (20:00)
--- NOTE | 2019-02-15 22:58 | NUR ---
RECEIVED REPORT FROM PREVIOUS NURSE. CALL LIGHT WITHIN REACH. PATIENT IN BED.
--- NOTE | 2019-02-15 23:05 | NUR ---
Report given to Dorcas WEBBER. Patient resting in bed, in stable condition, no s/s of distress at this time. All safety measures in place. Family at bedside.
[2019-02-16] VITALS (8 sets, daily range): BP systolic 95–117; BP diastolic 53–61
[2019-02-16 04:13] LABS: BASOPHILS % 0.1 % (0.0-1.0); EOSINOPHILS # (AUTO) 0.1 (0.0-0.4); EOSINOPHILS % 0.5 % (0.0-6.0); LYMPHOCYTES # (AUTO) 1.4 (1.0-3.2); LYMPHOCYTES % 8.7 % (18.0-39.1); MEAN CORPUSCULAR HEMOGLOBIN 34.8 pg (28-32); MEAN CORPUSCULAR HGB CONC 32.9 g/dL (31-35); MEAN CORPUSCULAR VOLUME 105.7 fL (81-99); MONOCYTES # (AUTO) 1.9 (0.2-0.8); MONOCYTES % 12.2 % (4.4-11.3); NEUTROPHILS # (AUTO) 11.8 (2.1-6.9); NEUTROPHILS % 76.1 % (38.7-80.0); PLATELET COUNT 53 x10e3/uL (140-360); RED CELL DISTRIBUTION WIDTH 19.3 % (11.7-14.4)
[2019-02-16 04:19] LABS: HEMATOCRIT 22.2 % (34.2-44.1)
[2019-02-16 04:20] LABS: HEMOGLOBIN 7.3 g/dL (12.0-16.0)
--- NOTE | 2019-02-16 04:28 | NUR ---
Lab called to say the patient's hemoglobin was 7.3. DANIELA Nance of Dr. Hendrix was notified and she decided not to do anything.
[2019-02-16 05:11] LABS: ANION GAP 13.9 mmol/L (8-16); CALCIUM 7.5 mg/dL (8.4-10.2); CREATININE, SERUM 1.39 mg/dL (0.57-1.11); POTASSIUM 3.9 mmol/L (3.5-5.1)
--- NOTE | 2019-02-16 06:55 | NUR ---
Received patient lying in bed with eyes open. Respiration even and unlabored without SOB. Call light in reach.
[2019-02-16 07:03] LABS: FERRITIN 356.22 ng/mL (4.63-204.00)
--- NOTE | 2019-02-16 07:14 | NUR ---
Gave report to robert daniel. call light within reach. Patient in bed. Addendum: 02/16/19 at 0715 by Dorcas Diop RN at bedside
[2019-02-16] MEDS: SPIRONOLACTONE 25 MG TAB PO SCH (09:37)
[2019-02-16] MEDS: FUROSEMIDE 40 MG TAB PO SCH ×2 (09:38→17:44)
[2019-02-16] MEDS: CEFTRIAXONE SOD 1 GM/NS 50 ML 50 ML IV SCH (17:44)
--- NOTE | 2019-02-16 18:15 | NUR ---
Non- working left AC PIV discontinued, catheter intact, no bleeding noted. 20g PIV to right AC in placed, intact and patent.
--- NOTE | 2019-02-16 19:12 | NUR ---
Report given to night nurse. Respiration even and unlabored without SOB. Call light in reach.
--- NOTE | 2019-02-16 19:21 | NUR ---
Received bedside report from day nurse. Patient resting in bed, in stable condition, no s/s of distress at this time. All safety measures in place. Family at bedside. Will continue to monitor.
[2019-02-16] MEDS: TRAMADOL HCL 50 MG TAB PO PRN (20:18)
[2019-02-16] MEDS: ATORVASTATIN 20 MG TAB PO SCH (20:18)
[2019-02-16] MEDS: ONDANSETRON HCL INJ 2MG/ML 2ML 2 MG/ML VIAL IV PRN (23:57)
--- NOTE | 2019-02-16 23:57 | NUR ---
Patient c/o nausea and vomiting. Administered PRN Zofran. Head of bed elevated. All safety measures in place. Family at bedside. Will continue to monitor.
[2019-02-17] VITALS (8 sets, daily range): BP systolic 101–115; BP diastolic 55–70
[2019-02-17 03:47] LABS: BASOPHILS % 0.2 % (0.0-1.0); EOSINOPHILS # (AUTO) 0.1 (0.0-0.4); EOSINOPHILS % 0.3 % (0.0-6.0); HEMATOCRIT 24.3 % (34.2-44.1); HEMOGLOBIN 8.2 g/dL (12.0-16.0); LYMPHOCYTES # (AUTO) 1.5 (1.0-3.2); LYMPHOCYTES % 8.4 % (18.0-39.1); MEAN CORPUSCULAR HEMOGLOBIN 35.2 pg (28-32); MEAN CORPUSCULAR HGB CONC 33.7 g/dL (31-35); MEAN CORPUSCULAR VOLUME 104.3 fL (81-99); MONOCYTES % 11.7 % (4.4-11.3); NEUTROPHILS % 75.4 % (38.7-80.0); PLATELET COUNT 84 x10e3/uL (140-360); RED BLOOD COUNT 2.33 x10e6/uL (3.6-5.1); RED CELL DISTRIBUTION WIDTH 19.8 % (11.7-14.4)
[2019-02-17 04:00] LABS: ANION GAP 14.2 mmol/L (8-16); CALCIUM 7.7 mg/dL (8.4-10.2); CREATININE, SERUM 1.4 mg/dL (0.57-1.11); POTASSIUM 4.2 mmol/L (3.5-5.1)
--- NOTE | 2019-02-17 07:12 | NUR ---
Gave bedside report to day nurse. Patient sitting up in bed, no s/s of distress or c/o pain at this time. All safety measures in place. Family at bedside.
[2019-02-17] MEDS: FUROSEMIDE 40 MG TAB PO SCH ×2 (09:14→16:54)
[2019-02-17] MEDS: SPIRONOLACTONE 25 MG TAB PO SCH (09:14)
[2019-02-17] MEDS: ONDANSETRON HCL INJ 2MG/ML 2ML 2 MG/ML VIAL IV PRN (09:24)
--- NOTE | 2019-02-17 09:46 | NUR ---
Patient received this morning, alert and responsive, no resp distress, call light within reach, will monitor.
--- NOTE | 2019-02-17 09:50 | NUR ---
Rounds by Dr. Reyna, notified patient has vomited x3 time last night and WBC went up. Contacted Lee Ann and will consult Shebib
[2019-02-17 10:18] LABS: ALBUMIN 2.2 g/dL (3.5-5.0)
[2019-02-17 11:46] LABS: BILIRUBIN,URINE NEGATIVE (NEGATIVE); CLARITY,URINE CLEAR (CLEAR); COLOR,URINE YELLOW (YELLOW); KETONES,URINE NEGATIVE (NEGATIVE); LEUKOCYTE ESTERASE ,URINE NEGATIVE (NEGATIVE); NITRITE,URINE NEGATIVE (NEGATIVE); PROTEIN,URINE DIPSTICK TRACE (NEGATIVE); URINE UROBILINOGEN 0.2 mg/dL (0.2 - 1)
--- NOTE | 2019-02-17 11:54 | NUR ---
Urine collected and sent to the lab
[2019-02-17 11:58] LABS: BACTERIA,URINE FEW /HPF; EPITHELIAL CELLS,URINE MODERATE /LPF; RBC,URINE 0-5 /HPF (0-5); WBC,URINE (MAN) 0-5 /HPF (0-5)
[2019-02-17 11:59] LABS: MUCUS,URINE FEW (RARE)
--- NOTE | 2019-02-17 15:01 | NUR ---
Order for paracentesis in place, radiologist wants imaging to document rationale, call to Dr. Reyna and will completed abdl u/s stat.
[2019-02-17] MEDS: TRAMADOL HCL 50 MG TAB PO PRN (15:02)
--- NOTE | 2019-02-17 16:11 | Diagnostic Imaging Report ---
EXAM: US ABDOMEN COMPLETE DATE: 02/17/2019 12:00 AM INDICATION: Abdominal pain COMPARISON: Complete abdominal ultrasound of 02/13/2019 TECHNIQUE: Transverse and longitudinal sotelo scale and color doppler sonographic images of the upper abdomen were obtained. FINDINGS: There is no evidence of fluid or masses seen in the area of clinical concern in the right lower quadrant. LIVER 13.0 cm in the right midclavicular line. Normal echogenicity of the liver with nodular contour, no masses. SPLEEN 11.7 cm in maximum diameter. Normal echogenicity, no masses. GALLBLADDER Cholelithiasis and gallbladder distention to 5.9 cm. No gallbladder wall thickening or pericholecystic fluid. Negative reported sonographic Lugo's sign. Gallbladder wall measures 4 mm. BILE DUCTS No intra nor extra-hepatic biliary dilation. Common bile duct measures 3 mm PANCREAS: Visualized portions are normal. RIGHT KIDNEY: 8.9 cm Echogenicity: Normal Collecting System: No hydronephrosis Stones: None Cyst/Mass: None LEFT KIDNEY: 8.0 cm Echogenicity: Normal Collecting System: No hydronephrosis Stones: None Cyst/Mass: None VESSELS: Aorta: Visualized portions are within normal size limits Inferior Vena Cava: Visualized portions are normal Main Portal Vein: 0.8 cm, normal size with hepatopetal flow. FREE FLUID: Trace right upper quadrant free fluid. No free fluid elsewhere in the abdomen. IMPRESSION: Trace right upper quadrant free fluid. No free fluid elsewhere in the abdomen. This is insufficient for safe performance of paracentesis. Liver cirrhosis. Cholelithiasis and mildly distended gallbladder without specific sonographic evidence of cholecystitis. Signed by: Anastasia Canales MD on 02/17/2019 4:08 PM
--- NOTE | 2019-02-17 16:37 | NUR ---
Orders per Dr. Reyna to cancel IR consult for paracentesis and order a 2 view abdomen due to distension/pain
[2019-02-17] MEDS: CEFTRIAXONE SOD 1 GM/NS 50 ML 50 ML IV SCH (16:54)
--- NOTE | 2019-02-17 17:54 | Diagnostic Imaging Report ---
Two view abdomen series. CPT 92407 CLINICAL HISTORY: Abdominal distention, pain TECHNIQUE: Flat and upright views of the abdomen obtained. COMPARISON: CT abdomen/pelvis 02/13/2019. Medical Devices: TAVR in appropriate position. Bowel: Multiple small bowel loops are distended with air to a diameter of 4.1 cm. There is a small amount of air in the transverse colon. No evidence of air in the rectum. No pneumatosis. Calcifications: None over the renal shadows or along the expected course of the ureters. Organomegaly: None Free air: None Lung bases: Clear Bones: Stable degenerative changes of the spine. IMPRESSION: Multiple distended small bowel loops suggestive of ileus or low-grade partial small bowel obstruction. Signed by: Dr. Ariel Wolf MD on 02/17/2019 5:50 PM
[2019-02-17] MEDS ORDERED: BISACODYL 10 MG SUPP PR ONE (19:00)
--- NOTE | 2019-02-17 19:01 | NUR ---
Received bedside report from day nurse. Patient resting in bed, no s/s of distress or c/o pain at this time. All safety measures in place. Family at bedside.
--- NOTE | 2019-02-17 19:02 | NUR ---
Abdomen distended, 2 view abd with ileus, Dr. Reyna notified, keep NPO, Lee Ann notified, consult Dr. Lund, IV fluids
--- NOTE | 2019-02-17 19:12 | NUR ---
Received orders from Lee Ann REVENUE STAMP CUTTER for continuous D5 @ 50 ml/hr.
[2019-02-17] MEDS ORDERED: DEXTROSE 5% 1,000 ML IV SCH (19:15)
[2019-02-17] MEDS ORDERED: DEXTROSE 5%/0.9% SOD CHL 1,000 ML IV SCH (19:15)
[2019-02-17] MEDS: ATORVASTATIN 20 MG TAB PO SCH (19:28)
--- NOTE | 2019-02-17 19:36 | NUR ---
Spoke on the phone with Dr. García, who is covering for Dr. Lund, regarding routine consult. Clarified that consult is for ileus. Dr. García says he will come to see patient tomorrow.
[2019-02-18] VITALS (9 sets, daily range): BP systolic 93–130; BP diastolic 50–72
[2019-02-18 03:17] LABS: BASOPHILS % 0.2 % (0.0-1.0); EOSINOPHILS # (AUTO) 0.1 (0.0-0.4); EOSINOPHILS % 0.6 % (0.0-6.0); HEMATOCRIT 23.1 % (34.2-44.1); HEMOGLOBIN 7.8 g/dL (12.0-16.0); LYMPHOCYTES # (AUTO) 1.3 (1.0-3.2); LYMPHOCYTES % 7.8 % (18.0-39.1); MEAN CORPUSCULAR HEMOGLOBIN 36.3 pg (28-32); MEAN CORPUSCULAR HGB CONC 33.8 g/dL (31-35); MONOCYTES # (AUTO) 2.4 (0.2-0.8); MONOCYTES % 13.8 % (4.4-11.3); NEUTROPHILS # (AUTO) 12.6 (2.1-6.9); NEUTROPHILS % 73.6 % (38.7-80.0); RED BLOOD COUNT 2.15 x10e6/uL (3.6-5.1); RED CELL DISTRIBUTION WIDTH 19.3 % (11.7-14.4)
[2019-02-18 03:21] LABS: PLATELET COUNT 46 x10e3/uL (140-360)
[2019-02-18 03:22] LABS: MEAN CORPUSCULAR VOLUME 107.4 fL (81-99)
[2019-02-18 03:48] LABS: ANION GAP 13.4 mmol/L (8-16); CALCIUM 7.8 mg/dL (8.4-10.2); CREATININE, SERUM 1.57 mg/dL (0.57-1.11); POTASSIUM 4.4 mmol/L (3.5-5.1)
--- NOTE | 2019-02-18 05:55 | NUR ---
Notified Lee Ann SUAREZ of platelet count of 46. No additional orders received at this time.
--- NOTE | 2019-02-18 06:09 | NUR ---
Per Lee Ann SUAREZ, paged Dr. Nieto to notify him of platelet count of 46. Awaiting return call.
[2019-02-18] MEDS: DEXTROSE 5%/0.9% SOD CHL 1,000 ML IV SCH ×2 (06:26→23:03)
--- NOTE | 2019-02-18 06:46 | NUR ---
Spoke with Dr. Nieto regarding platelet count of 46. No additional orders received at this time.
--- NOTE | 2019-02-18 06:58 | NUR ---
Bedside report given to oncoming nurse. Patient resting in bed, no s/s of distress or c/o pain at this time. All safety measures in place. Family at bedside.
--- NOTE | 2019-02-18 07:49 | NUR ---
Received patient today, a/ox3, no resp distress, call light within reach, will monitor.
[2019-02-18 08:13] LABS: ANISOCYTOSIS SLIGHT; LYMPHOCYTES % (MANUAL) 11 % (19-48); METAMYELOCYTES % (MANUAL) 2 % (0-0); MONOCYTES % (MANUAL) 11 % (3.4-9.0); NEUTROPHILS % (MANUAL) 76 % (40-74); PLATELET ESTIMATE MARKEDLY DECREASED; PLATELET MORPHOLOGY COMMENT NORMAL; RBC MORPHOLOGY COMMENT ABNORMAL
[2019-02-18] MEDS: FUROSEMIDE 40 MG TAB PO SCH ×2 (09:00→17:21)
[2019-02-18] MEDS: SPIRONOLACTONE 25 MG TAB PO SCH (09:00)
--- NOTE | 2019-02-18 09:26 | Diagnostic Imaging Report ---
Abdomen/KUB INDICATION: ^f/u ileus vs sbo ^[id number] ^[id number] COMPARISON: Abdomen x-ray 02/17/2019. FINDINGS: Portable, supine image obtained at 0842 hours. Medical Devices: None Bowel: Multiple distended small bowel loops are redemonstrated measuring up to 3.9 cm in diameter. The number of dilated small bowel loops have diminished. There is a small amount of air in the large bowel and rectum. No pneumatosis Free air: None Abdominal calcifications: None Organomegaly: None Lung bases: Clear. TAVR is stable Bones: Stable IMPRESSION: Persistent dilatation of small bowel loops suggestive of ileus or low-grade partial small bowel obstruction. Signed by: Dr. Ariel Wolf MD on 02/18/2019 9:23 AM
--- NOTE | 2019-02-18 10:59 | Consultation ---
DATE OF CONSULTATION: 02/18/2019 HISTORY OF PRESENT ILLNESS: The patient is an 78-year-old female, admitted to the hospital 5 days ago. She had complaints of weakness with nausea and abdominal distention. She has a history of cirrhosis of liver, was found to have ascites. The patient also been found to have gallstones on ultrasound. She denies any abdominal pain. She has no nausea or vomiting at this time. She did have some nausea two days ago. She has been having bowel movements. PAST MEDICAL HISTORY: Significant for hypertension, hyperlipidemia, cirrhosis of liver, chronic anemia. PAST SURGICAL HISTORY: Only previous surgery is section. MEDICATIONS: At home were Lipitor, Lasix, Levaquin, magnesium, omeprazole, potassium, Inderal, and Aldactone. ALLERGIES: SHE HAS ALLERGY TO ASPIRIN. FAMILY HISTORY: Noncontributory. SOCIAL HISTORY: The patient is a former smoker, quit many years ago. Does not drink alcohol. REVIEW OF SYSTEMS: As stated above. She has not had any fever. She has had feelings of weakness. PHYSICAL EXAMINATION: GENERAL: The patient is awake and alert. VITAL SIGNS: At this time are normal. HEENT: Sclerae slightly icteric. NECK: Has no masses. LUNGS: Equal breath sounds are clear bilaterally. CARDIAC: Regular rate and rhythm with no murmur. ABDOMEN: Distended, but soft. There was no significant tenderness. No mass. No signs of peritonitis. EXTREMITIES: Slight edema. NEUROLOGIC: Grossly intact. LABORATORY TESTS: White blood count 17.17, hemoglobin 7.8, and platelet counts 46,000. Chemistries reveal hyponatremia, sodium 125. BUN and creatinine mildly elevated 42 and 1.6. Bilirubin is elevated 3.8, alkaline phosphatase is normal. AST is slightly elevated at 81. IMAGING STUDIES: CT of the abdomen and pelvis on admission revealed a cirrhosis of liver with ascites, also gallstones, diverticulosis. ASSESSMENT: This is an 78-year-old female, whose primary problem is secondary to cirrhosis of liver with ascites. She does have gallstones, she is currently asymptomatic. The patient may have diet as tolerated. There are no findings that would warrant surgical intervention at this time. She would be very high risk for complications of surgery due to her underlying liver disease. She still has abdominal distention, secondary to ascites and repeat paracentesis is to be done, and I agree with this plan, but there are no findings at this time that would warrant surgical intervention. Thank you for asking me to see Ms. Cortes Nick. MD WINNIE Montoya/TEJAL /[id number]
[2019-02-18] MEDS: PIPER-TAZ 3.375 GM 50 ML IV SCH ×2 (11:53→17:21)
--- NOTE | 2019-02-18 13:08 | NUR ---
Dr. García made rounds this morning and as per his note, it states patient is not a candidate for surgery and that patient could go ahead and start meals. Son in the room also confirmed Dr. García said that. Call to Dr. García at this time to clarify status if patient can go ahead and eat given ileus and he wants diet started as a clear liquid diet. Orders will be entered at this time.
--- NOTE | 2019-02-18 17:09 | NUR ---
Patient producing a lot of oral phlegm which resolved. She is now having dinner, denies nausea/vomiting, c/o mild abdl pain 05/29, call light within reach, will monitor.
--- NOTE | 2019-02-18 19:18 | NUR ---
PT IS RESTING IN THE RECLINER WITH AT BEDSIDE. RESPIRATION IS EVEN AND UNLABORED, NO DISTRESS NOTED. BED IN THE LOWEST POSITION, LOCKED, AND CALL LIGHT WITHIN REACH. WILL CONTINUE TO MONITOR.
[2019-02-18] MEDS: ATORVASTATIN 20 MG TAB PO SCH (21:29)
[2019-02-18] MEDS ORDERED: SODIUM FERRIC GLUCONATE COMPLX 125 MG in SODIUM CHLORIDE 0.9% 100 ML 100 ML IV ONE (22:00)
[2019-02-19] VITALS (7 sets, daily range): BP systolic 92–115; BP diastolic 40–57
--- NOTE | 2019-02-19 01:38 | Consultation ---
DATE OF CONSULTATION: 02/18/2019 Recommendations are antibiotic, concerned about UTI. This patient is an 78-year-old female, who has history of liver cirrhosis of unknown etiology comes in primary. The patient comes in with ascites, not feeling well. She is also known to have history of hypertension, hyperlipidemia, and chronic anemia. The patient had history of before. She was admitted because she was not feeling well. There was concern about infection when she first came. Blood culture was done. Urine culture was done, all negative, but her white count was elevated. The patient has missed out antibiotic and the son who translates for me is telling me that since she came here, she is feeling better. When she first came, her white count was 15.5, hemoglobin 7.8, hematocrit 23, and her platelets are 69, came down to 46. Her sodium 126, potassium 4.2, creatinine of 1.40, bilirubin of 3.8, and AST of 81. Her laboratory data reviewed. White count is 130, creatinine 1.39. The patient is currently on Zosyn. The patient is currently lying in bed comfortably. PAST MEDICAL HISTORY: As above. PAST SURGICAL HISTORY: As above. ALLERGIES: NKA. SOCIAL HISTORY: No smoking, drug abuse, or alcohol abuse. FAMILY HISTORY: Noncontributory. REVIEW OF SYSTEMS: HEENT: Negative. PULMONARY: Negative. CARDIAC: Negative. : Negative at the present time. Her review of systems otherwise unremarkable. LABORATORY DATA: Reviewed. PHYSICAL EXAMINATION: GENERAL: She is currently alert, oriented, does not seem in acute distress. VITAL SIGNS: Stable, currently afebrile. HEENT: She is not icteric. NECK: Supple. CHEST: Clear. HEART: S1, S2. No S3, S4, or murmurs. ABDOMEN: Soft. Bowel sounds present. No tenderness. EXTREMITIES: No edema. SKIN: No rash. IMPRESSION: 1. Ascites, present on admission. The peritoneocentesis does not suggest infection. The WBC was 77. I would recommend to discontinue antibiotics. Her cultures also have been negative. The leukocytosis could be reactive. 2. Anemia of chronic disease. 3. 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 4. Liver cirrhosis, primary. We will follow with you. Thank you for asking me to see this patient. MD CHAD Chambers/TEJAL /[id number]
--- NOTE | 2019-02-19 03:33 | Consultation ---
DATE OF CONSULTATION: 02/18/2019 REQUESTING PHYSICIAN: Sj Hendrix MD CONSULTING PHYSICIAN: Brodie Nieto MD, Hematology/Oncology Service. REASON FOR CONSULTATION: Evaluation and management of the patient with thrombocytopenia. HISTORY OF PRESENTING ILLNESS: Ms. Cortes Nick is a very pleasant 78-year-old female, who is very well known to me as she is my clinic patient and has known history of hypertension, hyperlipidemia, congestive heart failure, liver cirrhosis with known esophageal viruses, admitted through the emergency department due to the abdominal distention and pain. Apparently, the patient also complaining of shortness of breath along with weakness and lightheadedness. Recently, she has decrease in appetite along with nausea, vomiting, and has been feeling chills. In the emergency department, she underwent workup including CT scan of the abdomen and pelvis revealing severely cirrhotic liver and large volume ascites, as well as 2-mm of nonobstructive left lower pole renal calculus. CT also demonstrated cholelithiasis without evidence of cholecystitis. The patient was admitted to inpatient floor. Interventional Radiology was consulted for paracentesis. Hematology-Oncology was consulted due to thrombocytopenia. The patient was given a unit of platelet before paracentesis as she was thrombocytopenic. PAST MEDICAL HISTORY: 1. Hypertension. 2. Hyperlipidemia. 3. Congestive heart failure. 4. Known liver cirrhosis, initially diagnosed at [facility] with esophageal varices. 5. History of transient aortic wall replacement in September 2018. PAST SURGICAL HISTORY: 1. TAVR in September 2018. 2. Upper and lower endoscopies at [facility]. 3. Esophageal varices and banding. FAMILY HISTORY: Noncontributory. SOCIAL HISTORY: She has no reported history of smoking, alcohol use, or illicit drug use. ALLERGIES: ACETAMINOPHEN. CURRENT MEDICATIONS: Reviewed as per electronic medical record. REVIEW OF SYSTEMS: A 14-point review of systems is negative except as mentioned per history of presenting illness. PHYSICAL EXAMINATION: VITAL SIGNS: Reviewed as per electronic medical record. HEENT: PERRLA. Extraocular movement intact. Head is atraumatic and normocephalic. NECK: Supple. CVS: S1, S2 audible. RESPIRATORY: Decreased bilateral entry. ABDOMEN: Distended. Positive bowel sounds. EXTREMITIES: Trace edema. NEURO: The patient is alert, but confused. LABORATORY DATA: Reviewed as per electronic medical record. ASSESSMENT AND PLAN: Ms. Meche Kolb is a very pleasant 78-year-old female with known history of hypertension, hyperlipidemia, and liver cirrhosis leading to an esophageal varices and history of gastrointestinal bleed. She has been receiving IV iron infusion in the outpatient setting for severe anemia. Now, she has presented to the Emergency Department due to abdominal distention, pain, and not feeling well. Hematology-Oncology has been consulted to assist with the management. I reviewed the record and discussed at length with the patient about her current disease and importance of further workup. She already had a paracentesis after platelet transfusion, which I have requested. For now, platelet counts is in reasonable range. Continue monitor. I will resume IV iron if her counts drop. MD PASTORA Rico/MODL /[id number]
--- NOTE | 2019-02-19 03:43 | NUR ---
STUCK PT TWICE AND WAS UNABLE TO GET AM LAB DRAW. WILL HAVE BONDED STRUCTURES REPAIRER DO AM LAB DRAW. WILL CONTINUE TO MONITOR.
[2019-02-19 06:14] LABS: BASOPHILS # (AUTO) 0.1 (0.0-0.1); BASOPHILS % 0.3 % (0.0-1.0); EOSINOPHILS # (AUTO) 0.1 (0.0-0.4); EOSINOPHILS % 0.7 % (0.0-6.0); HEMATOCRIT 24.8 % (34.2-44.1); HEMOGLOBIN 8.1 g/dL (12.0-16.0); LYMPHOCYTES # (AUTO) 1.5 (1.0-3.2); MEAN CORPUSCULAR HEMOGLOBIN 35.4 pg (28-32); MEAN CORPUSCULAR HGB CONC 32.7 g/dL (31-35); MEAN CORPUSCULAR VOLUME 108.3 fL (81-99); MONOCYTES # (AUTO) 2.5 (0.2-0.8); NEUTROPHILS # (AUTO) 11.5 (2.1-6.9); NEUTROPHILS % 70.7 % (38.7-80.0); RED BLOOD COUNT 2.29 x10e6/uL (3.6-5.1); RED CELL DISTRIBUTION WIDTH 19.8 % (11.7-14.4)
[2019-02-19 06:19] LABS: PLATELET COUNT 42 x10e3/uL (140-360)
--- NOTE | 2019-02-19 06:31 | NUR ---
NOTIFY FRANCESCO MILLAN NP OF PLT OF 42. NO NEW ORDERS AT THIS TIME. WILL CONTINUE TO MONITOR.
[2019-02-19 06:32] LABS: ANION GAP 13.4 mmol/L (8-16); CALCIUM 7.9 mg/dL (8.4-10.2); CREATININE, SERUM 1.72 mg/dL (0.57-1.11); POTASSIUM 4.4 mmol/L (3.5-5.1)
--- NOTE | 2019-02-19 06:38 | Diagnostic Imaging Report ---
KUB - 1 view INDICATION: Ileus or SBO. COMPARISON: KUB 02/18/2019. FINDINGS: Multiple distended small bowel loops are redemonstrated measuring up to 3.6 cm. There is a small amount of air in the large bowel and rectum. No evidence of pneumatosis. No evidence of free intraperitoneal air. No acute osseous abnormality. Degenerative changes of the visualized spine. IMPRESSION: Persistent mild dilation of small bowel loops, which may represent non-obstructive ileus versus partial small bowel obstruction. Signed by: Dr. Tre Nix MD on 02/19/2019 6:35 AM
[2019-02-19 07:06] LABS: PLATELET ESTIMATE MODERATELY DECREASED; PLATELET MORPHOLOGY COMMENT FEW LARGE
--- NOTE | 2019-02-19 07:39 | NUR ---
Patient alert and responsive, no resp distress, call light within reach, no c/o pains, no resp distress, bed in low locked position, will monitor
[2019-02-19] MEDS: SPIRONOLACTONE 25 MG TAB PO SCH (09:00)
[2019-02-19] MEDS: FUROSEMIDE 40 MG TAB PO SCH ×2 (09:00→16:41)
--- NOTE | 2019-02-19 16:41 | NUR ---
Patient's son refused Lasix at this time because they seem to think that it causes nausea. Patient has tolerated full liquid diet all day today with no nausea, no vomiting, abdomen still distended, bowel sounds diminished, no c/o pains today.
--- NOTE | 2019-02-19 16:48 | NUR ---
Report given to INOCENTE You and patient will be transferred to [facility]
--- NOTE | 2019-02-19 19:00 | NUR ---
RECEIVED PATIENT IN BEDSIDE REPORT. PATIENT RESTING ON R SIDE. REPORTS SOME PAIN LUQ OF ABDOMEN, DOES NOT REQUEST PAIN MEDICATION AT THIS TIME. NO S&S OF DISTRESS NOTED. BED LOCKED IN LOWEST POSITION, SIDE RAILS UPX2, CALL LIGHT IN REACH.
[2019-02-19] MEDS: ATORVASTATIN 20 MG TAB PO SCH (20:31)
[2019-02-20] VITALS (15 sets, daily range): BP systolic 89–115; BP diastolic 46–70
[2019-02-20 02:30] LABS: BASOPHILS % 0.2 % (0.0-1.0); EOSINOPHILS # (AUTO) 0.1 (0.0-0.4); EOSINOPHILS % 0.6 % (0.0-6.0); HEMOGLOBIN 7.2 g/dL (12.0-16.0); LYMPHOCYTES # (AUTO) 1.3 (1.0-3.2); LYMPHOCYTES % 8.8 % (18.0-39.1); MEAN CORPUSCULAR HEMOGLOBIN 35.5 pg (28-32); MEAN CORPUSCULAR VOLUME 110.8 fL (81-99); MONOCYTES # (AUTO) 2.1 (0.2-0.8); MONOCYTES % 13.7 % (4.4-11.3); NEUTROPHILS # (AUTO) 11.1 (2.1-6.9); NEUTROPHILS % 73.3 % (38.7-80.0); RED BLOOD COUNT 2.03 x10e6/uL (3.6-5.1); RED CELL DISTRIBUTION WIDTH 20.7 % (11.7-14.4)
[2019-02-20 02:42] LABS: ANION GAP 15.8 mmol/L (8-16); CALCIUM 7.3 mg/dL (8.4-10.2); CREATININE, SERUM 1.52 mg/dL (0.57-1.11); POTASSIUM 4.8 mmol/L (3.5-5.1)
[2019-02-20 02:55] LABS: HEMATOCRIT 22.5 % (34.2-44.1)
[2019-02-20 02:56] LABS: PLATELET COUNT 38 x10e3/uL (140-360)
--- NOTE | 2019-02-20 03:04 | NUR ---
CALLED MD HIGH ANSWERING SERVICE CONCERNING CRITICAL LAB VALUES, DANIELA MARIE ANSWERED, NO NEW ORDERS.
--- NOTE | 2019-02-20 05:30 | NUR ---
ARISTIDES BROOKE JAWED CONCERNING CRITICAL BLOOD COUNTS PER PRESCHOOL TEACHER ASSISTANT CYNTHIA, SHE HAD ALREADY BEEN NOTIFIED. AWAITING CALL BACK.
--- NOTE | 2019-02-20 07:06 | Diagnostic Imaging Report ---
KUB - 1 view INDICATION: Ileus or SBO. COMPARISON: KUB 02/19/2019. FINDINGS: Exam is somewhat limited by portable technique and exclusion of the right hemithorax and inferior pelvis from the [id number]. Decreasing air-filled distention of small bowel loops, measuring up to 2.5 cm, previously 3.6 cm. There is increasing air within the colon. No evidence of free air. No acute osseous abnormality. Degenerative changes of the visualized spine. IMPRESSION: Decreasing air-filled distention of small bowel loops. Increasing air within the colon. No evidence of high-grade obstruction. Signed by: Dr. Tre Nix MD on 02/20/2019 7:02 AM
[2019-02-20] MEDS ORDERED: SODIUM CHLORIDE 0.9% 250ML 250 ML IV ONE (07:20)
[2019-02-20 08:30] LABS: ANISOCYTOSIS SLIGHT; BAND NEUTROPHILS % (MANUAL) 3 %; EOSINOPHILS % (MANUAL) 1 % (0-7); LYMPHOCYTES % (MANUAL) 7 % (19-48); MONOCYTES % (MANUAL) 14 % (3.4-9.0); NEUTROPHILS % (MANUAL) 75 % (40-74); POIKILOCYTOSIS SLIGHT; POLYCHROMASIA FEW
[2019-02-20 08:31] LABS: BURR CELLS SLIGHT; HELMET CELLS RARE; OVALOCYTES FEW
[2019-02-20 08:32] LABS: RBC MORPHOLOGY COMMENT ABNORMAL
[2019-02-20 08:34] LABS: PLATELET ESTIMATE MARKEDLY DECREASED
[2019-02-20 08:35] LABS: PLATELET MORPHOLOGY COMMENT NORMAL
[2019-02-20] MEDS: FUROSEMIDE 40 MG TAB PO SCH (09:00)
[2019-02-20] MEDS: SPIRONOLACTONE 25 MG TAB PO SCH (09:00)
--- NOTE | 2019-02-20 12:09 | NUR ---
MD HO NOTIFIED REGARDING LABS COMMENT STATING PT WAS NOT ABLE TO GET BLOOD TRANSFUSION DUE TO REACTION FROM LAST TRANSFUSION. DR. HO INFORMED NURSE TO HAVE LAB CALL HIM WITH INFORMATION ON TYPE OF REACTION PT EXPERIENCED. DR. HO PHONE INFORMATION GIVEN TO LAB AT THIS TIME.
--- NOTE | 2019-02-20 13:49 | NUR ---
Nutrition Intervention Note RD Recommendation(s) for Physician: The patient meets criteria for unspecified SEVERE protein-calorie malnutrition. -Ensure Enlive BID -Continue current diet Plan of Care: RD following, monitoring for tolerance and adequacy Nutrition reason for involvement: Follow up RD Assessment 02/20: Pt sleeping at time of visit, at bedside reports pt intake improving and denies any GI distress. Pt discussed during am rounds, RN reports pt ate very well for breakfast and that diet is being held for lunch for KUB. Chart reviewed. Will monitor and continue to follow. (02/15/19) Pt is a 78 year old female admitted with abdominal pain. Pt was sleeping at time of visit; therefore, spoke to family member. Family member reported that pt has been eating < 50% of meals for the past 2-3 months. Per documentation, pt has been eating 0-75% of meals during admission. Family member also mentioned pt had lost wt and used to weigh 195 lbs in September. Pt currently has a wt of 165 lbs in chart. If accurate, this would be a 15% wt loss in 4 months severe wt loss. Pt usually drinks Ensure 2x/day. Will continue to monitor. No chewing/swallowing issues noted. Principal Problems/Diagnoses: abdominal pain PMH: HTN, HLD, CHF GI: LBM 02/20 Skin: no pressure ulcers Labs: 02/20: Na 128, BUN 44, Cr 1.52, Gluc 143, Ca 7.3 Meds: lipitor, zofran, lasix, aldactone Ht: 66 inches Wt: 165 lbs BMI: 26.6 kg/m2 IBW: 130 lbs Malnutrition Evaluation (02/15/19) The patient meets criteria for unspecified SEVERE protein-calorie malnutrition. Energy intake: <75% of estimated energy requirements for >1 month Weight loss: 15% wt loss in 4 months Fat loss: unable to evaluate, Muscle loss: unable to evaluate, Supporting Evidence: Fluid accumulation: unable to evaluate Functional Status: unable to evaluate Nutrition Prescription (Diet Order): GI Soft, 2 gm Na diet Estimated Nutritional Needs: 5076-0993 calories/day (18-20 kcal/kg CBW) 75-113 g protein/day (1-1.5 g pro/kg CBW) Diet Adequacy: Not meeting calorie needs, Not meeting protein needs Tolerance: Tolerating PO Diet Education Needs Assessment: RD is available for diet education as needed Nutrition Care Level: moderate Nutrition Diagnosis: Severe protein calorie malnutrition related to chronic illness as evidenced by pt meeting <75% of energy needs > 1 month and 15% wt loss in 4 months per family members statements. Goal: Patient will meet 75-100% of estimated needs by follow up Progress: progressing Interventions: Sodium-modified diet, Commercial beverage Monitoring/Evaluation: -Total energy intake, Total protein intake, Modified diet, Liquid supplement, Weight change Signed: Yari Rivero RD, LD, [facility]
[2019-02-20] MEDS ORDERED: MORPHINE SULFATE INJ 4 MG/ML INJ 1ML IV PRN (15:45)
--- NOTE | 2019-02-20 18:08 | Diagnostic Imaging Report ---
HIDA Scan with Morphine Challenge Clinical information: Abdominal pain Report: Following the administration of 6.5 of Tc-99m mebrofenin, dynamic images of the abdomen in the anterior projection were obtained through 60 minutes. Morphine sulfate 3 mg was administered via slow IV push and additional images were obtained through 30 minutes. Perfusion to the liver is normal, however, the liver is reduced in size. Extraction of tracer by the liver parenchyma is moderate to severely reduced with persistence of tracer in the blood pool throughout the study. Tracer appears promptly within the biliary tract. Tracer is seen within the small bowel by 11 minutes. The gallbladder does not fill during the initial 60 minutes of dynamic imaging. Following administration of morphine, the gallbladder also does not fill. Impression: 1. Absence of filling of the gallbladder, even following administration of morphine, is compatible with the diagnosis of acute cystic duct obstruction/acute cholecystitis. 2. Cirrhosis of the liver evidenced by reduced overall size and impaired hepatocyte function. Signed by: Dr. Esmer Armstrong M.D. on 02/20/2019 6:05 PM
--- NOTE | 2019-02-20 19:00 | NUR ---
RECEIVED PATIENT IN BEDSIDE REPORT. PATIENT SLEEPING AT THIS TIME. NO PAIN REPORTED. NO N/V. FAMILY MEMBERS AT BEDSIDE. NO S&S OF DISTRESS NOTED. BED LOCKED IN LOWEST POSITION, SIDE RAILS UPX2, CALL LIGHT IN REACH.
--- NOTE | 2019-02-20 19:26 | NUR ---
SPOKE WITH MD HO REGARDING BLOOD TRANSFUSION. MD HO GAVE OKAY TO ADMINISTER BLOOD.
[2019-02-20] MEDS ORDERED: DIPHENHYDRAMINE HCL INJ 50 MG/ML VIAL IV ONE (19:30)
[2019-02-20] MEDS ORDERED: DEXAMETHASONE SOD PHOS INJ 4 MG/ML VIAL IV ONE (19:30)
[2019-02-20] MEDS ORDERED: SODIUM CHLORIDE 0.9% 250ML 250 ML ONE (21:50)
[2019-02-20] MEDS: ATORVASTATIN 20 MG TAB PO SCH (22:05)
--- NOTE | 2019-02-20 22:30 | NUR ---
BLOOD TRANSFUSION STARTED AT THIS TIME. BLOOD VERIFIED BY Vira ORTIZ RN AT BEDSIDE. BENADRYL 25 MG IV AND DECADRON 4 MG IV ADMINISTERED ORDERED PRIOR TO TRANSFUSION. NO S&S OF TRANSFUSION REACTION NOTED. PATIENT'S DAUGHTER AT BEDSIDE. WILL CONTINUE TO MONITOR.
[2019-02-21] VITALS (13 sets, daily range): BP systolic 97–123; BP diastolic 50–59
--- NOTE | 2019-02-21 02:00 | NUR ---
BLOOD TRANSFUSION COMPLETED AT THIS TIME. NO S&S OF TRANSFUSION REACTION NOTED. VITALS STABLE. WILL CONTINUE TO MONITOR.
[2019-02-21 05:38] LABS: BASOPHILS % 0.2 % (0.0-1.0); EOSINOPHILS % 0.1 % (0.0-6.0); HEMATOCRIT 26.7 % (34.2-44.1); HEMOGLOBIN 9.2 g/dL (12.0-16.0); LYMPHOCYTES # (AUTO) 0.7 (1.0-3.2); LYMPHOCYTES % 4.6 % (18.0-39.1); MEAN CORPUSCULAR HEMOGLOBIN 35.7 pg (28-32); MEAN CORPUSCULAR HGB CONC 34.5 g/dL (31-35); MEAN CORPUSCULAR VOLUME 103.5 fL (81-99); MONOCYTES # (AUTO) 0.8 (0.2-0.8); MONOCYTES % 5.3 % (4.4-11.3); NEUTROPHILS # (AUTO) 12.3 (2.1-6.9); NEUTROPHILS % 84.3 % (38.7-80.0); RED BLOOD COUNT 2.58 x10e6/uL (3.6-5.1); RED CELL DISTRIBUTION WIDTH 21.2 % (11.7-14.4)
[2019-02-21 05:40] LABS: PLATELET COUNT 36 x10e3/uL (140-360)
[2019-02-21 06:00] LABS: ANION GAP 13.2 mmol/L (8-16); CALCIUM 7.9 mg/dL (8.4-10.2); CREATININE, SERUM 1.5 mg/dL (0.57-1.11); POTASSIUM 5.2 mmol/L (3.5-5.1)
--- NOTE | 2019-02-21 06:22 | NUR ---
SPOKE WITH MD HO CONCERNING PATIENT'S CRITICAL LAB, PLATELET 36. INFORMED MD OF INCREASED IN HGB TO 9.2 AND HCT TO 26.7. NO NEW ORDERS RECEIVED.
--- NOTE | 2019-02-21 06:30 | Diagnostic Imaging Report ---
EXAM: Abdomen 1 View INDICATION: ^ILEUS VS SBO ^[id number] ^[id number] COMPARISON: KUB dated 02/20/2019 FINDINGS: Limited study due to underpenetration. Increased gaseous distention of a bowel loop in mid abdomen, measuring up to 6.5 cm. Partially seen rectal air. No definite evidence of pneumoperitoneum. Degenerative changes of spine. IMPRESSION: Limited study due to body habitus. Increased gaseous distention of a bowel loop in mid abdomen. Early/developing bowel obstruction cannot be excluded. Recommend follow-up as clinically indicated. Signed by: Dr. Rich Serrato MD on 02/21/2019 6:27 AM
[2019-02-21 07:21] LABS: PLATELET ESTIMATE MARKEDLY DECREASED
--- NOTE | 2019-02-21 07:49 | NUR ---
Paged Dr. Lund regarding results for HIDA scan. Awaiting call back.
--- NOTE | 2019-02-21 07:58 | NUR ---
Dr. Lund returned call. Results of HIDA scan read to physician. MD Lund stated he will inform Dr. García of findings.
[2019-02-21] MEDS: FUROSEMIDE 40 MG TAB PO SCH (10:03)
[2019-02-21] MEDS: SPIRONOLACTONE 25 MG TAB PO SCH (10:03)
--- NOTE | 2019-02-21 16:25 | NUR ---
Order received for home O2 and wheel chair and home health. In network for home health and O2 is [facility] and [facility]. Patient choses these companies. Clinicals faxed to each
--- NOTE | 2019-02-21 19:00 | NUR ---
RECEIVED PATIENT IN BEDSIDE REPORT. PATIENT RESTING IN BED AT THIS TIME. NO PAIN REPORTED. L AC 20G IV ASYMPTOMATIC, INTACT, AND PATENT. FAMILY MEMBER AT BEDSIDE. NO S&S OF DISTRESS NOTED. BED LOCKED IN LOWEST POSITION, SIDE RAILS UPX2, CALL LIGHT IN REACH.
--- NOTE | 2019-02-21 19:05 | NUR ---
Called number under MD Hendrix twice to inform RESEARCH GENETICIST of updated potassium level of 4.6. Not able to reach anyone, will inform oncoming nurse.
[2019-02-21] MEDS: ATORVASTATIN 20 MG TAB PO SCH (20:21)
[2019-02-22] VITALS (10 sets, daily range): BP systolic 95–117; BP diastolic 48–61
--- NOTE | 2019-02-22 04:26 | Progress Note ---
DATE: 02/20/2019 SUBJECTIVE: Ms. Kolb is currently complaining of some abdominal discomfort, but lying in bed comfortably. OBJECTIVE: GENERAL: Ms. Kolb is currently alert, oriented, does not seem acute distress. Vital Signs: Stable, afebrile. HEENT: She is not icteric. NECK: Supple. CHEST: Clear. COR: S1, S2. ABDOMEN: Soft. IMPRESSION: 1. Leukocytosis, stable clinically. 2. Liver cirrhosis. 3. Thrombocytopenia from cirrhosis. 4. Anemia of chronic disease. The patient is stable from Infectious Disease point of view. We will follow. MD CHAD Chambers/TEJAL /[id number]
[2019-02-22 06:17] LABS: ALBUMIN 2.1 g/dL (3.5-5.0); ALBUMIN/GLOBULIN RATIO 0.6 (0.8-2.0); ANION GAP 11.8 mmol/L (8-16); CREATININE, SERUM 1.4 mg/dL (0.57-1.11); POTASSIUM 4.8 mmol/L (3.5-5.1)
[2019-02-22] MEDS: SPIRONOLACTONE 25 MG TAB PO SCH (09:16)
[2019-02-22] MEDS: FUROSEMIDE 40 MG TAB PO SCH (09:16)
--- NOTE | 2019-02-22 11:38 | NUR ---
Per Akosua Jacobo, RESOURCE RECOVERY ENGINEER with palliative care, patient and Son Aureliano [phone] are receptive for hospice. Cancelled home health with home care providers - due to no hospice care and also the fact patient is possibly not able to be seen until Wednesday - and set patient up with [facility] who can provide both. Patient signed choice for [facility], rep notified
--- NOTE | 2019-02-22 11:44 | NUR ---
RECEIVED ORDER FOR HOSPICE CONSULT, CONTACTED [facility]ATH[facility] REP, NOTIFIED OF REFERRAL AND SHE WILL SET UP MEETING WITH FAMILY AND UPDATE US WITH OUTCOME.
--- NOTE | 2019-02-22 12:54 | NUR ---
Spoke with Dr. Hendrix regarding code status change. Patient and family requesting for DNR status. Dr. Hendrix gave order for DNR. order noted
--- NOTE | 2019-02-22 14:46 | NUR ---
MEETING WITH FAMILY AT 9 AM FOR [facility] REFERRAL
--- NOTE | 2019-02-22 18:30 | Progress Note ---
DATE: 02/22/2019 SUBJECTIVE: Ms. Kolb is doing better. No new complaints. REVIEW OF SYSTEMS: HEENT: Negative. PULMONARY: Negative. CARDIAC: Negative. CONSTITUTIONAL: The patient was weak, but lying in bed comfortably. LABORATORY DATA: Reviewed. Her chart reviewed. White count was 14.6 and hemoglobin 9.2. IMAGING: Noted, old notes reviewed. PHYSICAL EXAMINATION: GENERAL: She is currently alert. VITAL SIGNS: Stable, currently afebrile. HEENT: Normocephalic. Not icteric. NECK: Supple. CHEST: Clear bilaterally. HEART: S1 and S2. No S3, S4, or murmurs. ABDOMEN: Soft and distended. EXTREMITIES: No edema. SKIN: No rash. IMPRESSION AND PLAN: 1. Ascites, history of liver cirrhosis with thrombocytopenia and anemia. 2. From Infectious Disease point of view, I would recommend to stay off antibiotic at the present time. Hospice has been discussed. No new recommendation. Discussed with the medical team at length. MD CHAD Chambers/TEJAL /[id number]
[2019-02-22] MEDS: ATORVASTATIN 20 MG TAB PO SCH (21:08)
[2019-02-23] VITALS (7 sets, daily range): BP systolic 100–128; BP diastolic 56–72
--- NOTE | 2019-02-23 00:45 | NUR ---
Assessment done.no resp.distress.no pain voiced.voided.iv Left.ac is patent.bed locked and in lowest position.phone and call light within reach.instructed to call for asistance as needed.
--- NOTE | 2019-02-23 06:50 | NUR ---
Bed side shift report given to the oncoming Rn.stable condition.
[2019-02-23] MEDS ORDERED: TYLENOL WITH C1 EACH PO (07:14)
[2019-02-23] MEDS ORDERED: ZOFRAN4 MG PO (07:14)
[2019-02-23] MEDS: ONDANSETRON HCL INJ 2MG/ML 2ML 2 MG/ML VIAL IV PRN (07:15)
[2019-02-23] MEDS ORDERED: FUROSEMIDE40 MG PO (07:17)
[2019-02-23] MEDS: FUROSEMIDE 40 MG TAB PO SCH (08:44)
[2019-02-23] MEDS: SPIRONOLACTONE 25 MG TAB PO SCH (08:44)
[2019-02-23] MEDS: GUAIFENESIN 600 MG TAB PO SCH ×4 (08:44→23:58)
--- NOTE | 2019-02-23 09:00 | NUR ---
Spoke with son, daughter, granddaughter and patient, all at bedside. They have opted to not go with hospice at this time. Home health is still ordered. New company is chosen, one that contracts with patient's insurance, namely [employer] [phone], fax [phone]. Patient signs choice letter for [employer].
[2019-02-23 09:37] LABS: BASOPHILS % 0.2 % (0.0-1.0); EOSINOPHILS % 0.2 % (0.0-6.0); HEMATOCRIT 27.4 % (34.2-44.1); HEMOGLOBIN 9.5 g/dL (12.0-16.0); LYMPHOCYTES # (AUTO) 1.2 (1.0-3.2); LYMPHOCYTES % 6.7 % (18.0-39.1); MEAN CORPUSCULAR HGB CONC 34.7 g/dL (31-35); MEAN CORPUSCULAR VOLUME 103.8 fL (81-99); MONOCYTES % 11.6 % (4.4-11.3); NEUTROPHILS # (AUTO) 13.9 (2.1-6.9); NEUTROPHILS % 79.4 % (38.7-80.0); RED BLOOD COUNT 2.64 x10e6/uL (3.6-5.1); RED CELL DISTRIBUTION WIDTH 21.4 % (11.7-14.4)
[2019-02-23 10:09] LABS: PLATELET COUNT 41 x10e3/uL (140-360)
[2019-02-23 10:19] LABS: ANION GAP 13.9 mmol/L (8-16); CALCIUM 8.6 mg/dL (8.4-10.2); CREATININE, SERUM 1.3 mg/dL (0.57-1.11); MAGNESIUM 1.8 MG/DL (1.3-2.1); POTASSIUM 4.9 mmol/L (3.5-5.1)
--- NOTE | 2019-02-23 10:27 | NUR ---
received call from gene galo about setting up outpatient paracenteses with radiology. Spoke to [facility] willy who directed me to Lizeth WEBBER. Left message for Lizteh to discuss with me so we can further discuss and set up patient.
--- NOTE | 2019-02-23 11:12 | NUR ---
WAS ASKED TO INTERVENE ON THIS CASE. SPOKE WITH ALL STAFF AND FAMILY, FAMILY IS CONCERNED BECAUSE THEY WERE TOLD THAT THEY WOULD NOT BE ABLE TO GET BLOOD TRANSFUSION OR PARACENTESIS IF THEY SIGNED UP FOR HOSPICE. I WAS ABLE TO EDUCATE THE FAMILY ON DIFFERENCE BETWEEN HOSPICE AND HOME HEALTH, LET KNOW THAT FAMILY CAN INTERVIEW HOSPICE COMPANIES TO DETERMINE IF THEY CAN GET THOSE THINGS AND FOCUS ON VELVET QUALITY AND NOT CURATIVE FOR THE DIAGNOSIS. AGREE TO SPEAK WITH [facility]/
--- NOTE | 2019-02-23 12:02 | NUR ---
FAMILY MEETING WITH [facility] AT THIS TIME
--- NOTE | 2019-02-23 12:29 | Diagnostic Imaging Report ---
Limited abdominal ultrasound Clinical indication: Ascites Comparison: 04/19/2018 Technique/findings: A limited four-quadrant grayscale ultrasound of the abdomen was performed for the assessment of ascites. A moderate amount of ascites is present. Impression: Moderate abdominal ascites. Signed by: Uri Todd MD on 02/23/2019 12:25 PM
[2019-02-23] MEDS: ALBUTEROL/IPRATROPIUM 3 ML NEB NEB SCH ×2 (13:40→20:10)
--- NOTE | 2019-02-23 14:51 | NUR ---
FAMILY MET WITH [facility], WAS ABLE TO SPEAK WITH THE DOCTOR AND THE CHARGE NURSE TO GET THE ORDER FOR THE DRAIN, ALL PARTIES ARE IN AGREEMENT THAT PT WILL GO HOME TOMORROW WITH [facility].
[2019-02-23] MEDS ORDERED: LIDOCAINE HCL 1% LOCAL INJ 20 ML VIAL ONE (15:03)
[2019-02-23] MEDS ORDERED: SODIUM CHLORIDE 0.9% 250ML 250 ML ONE (15:15)
--- NOTE | 2019-02-23 16:09 | NUR ---
pt back from paracentesis and pleurx drain insertion placed on right lower abd site . dressing is dry and intact v.s taken and are stable .pt c/o of pain to chart. will see emar for pain jadiel.
--- NOTE | 2019-02-23 16:44 | Diagnostic Imaging Report ---
Insertion of a tunneled indwelling intraperitoneal drainage catheter (abdominal Pleurx) CLINICAL INDICATION: Ascites. Patient is going to hospice Radiologist: Uri Todd M.D. Estimated blood loss: Less than 5 mL Specimen: 4400 mL of benoit ascites was aspirated for therapeutic purposes TECHNIQUE: Informed written consent was obtained. Discussion of risks, benefits, and alternatives were made with the the patient's granddaughter. The patient expressed understanding and agreed to proceed. A universal timeout was performed prior to starting the procedure. All elements maximal sterile barrier technique was utilized for this procedure, including utilization of sterile scrub solution for skin prep, a large sterile sheet to cover the areas of the patient that were not prepped, and hand hygiene, mask, head covering, and sterile gown for performing radiologist and scrub technologist. Ultrasound of the patient's abdomen demonstrated a large amount of intra-abdominal ascites. The patient's skin was prepped and draped in the usual sterile fashion. Local anesthesia with lidocaine 1% was administered in the subcutaneous tissues along the planned subcutaneous tunnel tract. Two 1 cm incisions were made approximately 10 cm apart in the patient's right lower quadrant. A 15.5 Lao Pleurx catheter was then tunneled subcutaneously from the more superolateral incision to the more inferomedial incision. Under direct ultrasound guidance a 5 Lao Yueh catheter was advanced into the peritoneal cavity through the more inferior incision. Once the Yueh needle tip was within the peritoneal cavity the inner stylette was removed and a Hsu guidewire was inserted through the catheter into the peritoneal cavity. Ultrasound images documenting the tip of the needle within the peritoneal cavity and the wire within the peritoneal cavity were saved into PACS. Soft tissue dilators were then advanced over the guidewire and a 16 Lao peel-away sheath was placed. The guidewire was then removed and the Pleurx catheter was inserted through the peel-away sheath into the peritoneal cavity. The peel-away sheath was removed. The Pleurx catheter was then connected to a Vacutainer and ascites was aspirated for therapeutic purposes. The skin incisions were closed with absorbable Polysorb suture. Dermabond was applied to the more inferior incision. The catheter was secured with 2-0 suture and a sterile dressing was applied. The patient tolerated the procedure well without evidence of immediate complication and left the department in stable condition. IMPRESSION: Technically successful and uncomplicated placement of a right lower quadrant indwelling tunneled intraperitoneal drainage catheter (abdominal Pleurx) for management of refractory ascites. Signed by: Uri Todd MD on 02/23/2019 4:41 PM
[2019-02-23] MEDS: ACETAMINOPHEN/CODEINE 300MG - 30MG TAB PO PRN ×2 (18:40→23:14)
[2019-02-23] MEDS: ATORVASTATIN 20 MG TAB PO SCH (21:16)
[2019-02-24 00:07] VITALS: BP 93/55
--- NOTE | 2019-02-24 01:00 | NUR ---
Pain medication given. has seen the pt.bed locked and in lowest position.phone and call light within reach.instructed to call for assistance as needed.
[2019-02-24] MEDS: ALBUTEROL/IPRATROPIUM 3 ML NEB NEB SCH ×2 (01:20→06:50)
[2019-02-24 04:00] VITALS: BP 108/53
[2019-02-24] MEDS: GUAIFENESIN 600 MG TAB PO SCH ×2 (06:09→12:00)
--- NOTE | 2019-02-24 07:00 | NUR ---
Bed side shift report given to the oncoming Rn.stable condition.
[2019-02-24 08:00] VITALS: BP 110/56
--- NOTE | 2019-02-24 10:45 | NUR ---
SPOKE WITH ERNESTO ABOUT DISCHARGE, NURSE NEEDS TO CALL AND GET ORDER, FAMILY WANTS TO TAKE HOME AND HOSPICE SIDE IS READY.
--- NOTE | 2019-02-24 10:47 | NUR ---
EDUCATED ABOUT IMM, SIGNED, FILED IN CHART, WITH COPY LEFT WITH FAMILY AT BEDSIDE.
[2019-02-24] MEDS: FUROSEMIDE 40 MG TAB PO SCH (11:36)
[2019-02-24] MEDS: SPIRONOLACTONE 25 MG TAB PO SCH (11:36)
--- NOTE | 2019-02-27 10:38 | Discharge Summary ---
ADMISSION DIAGNOSES: 1. Anemia chronic disease due to cirrhosis. 2. Hypertension. 3. Hyperlipidemia. 4. Urinary tract infection present on admission with sepsis. 5. Thrombocytopenia. 6. Acute kidney injury versus chronic kidney disease. DISCHARGE DIAGNOSES: 1. Anemia chronic disease due to cirrhosis. 2. Hypertension. 3. Hyperlipidemia. 4. Urinary tract infection present on admission with sepsis. 5. Thrombocytopenia. 6. Acute kidney injury versus chronic kidney disease. 7. Rule out urinary tract infection,small bowel obstruction, cholelithiasis. HISTORY: Hypertension, hyperlipidemia, cirrhosis, anemia. SURGICAL HISTORY: . SOCIAL HISTORY: Noncontributory. HOSPITAL COURSE: An 78-year-old female admits to the ER with complaints of weakness, nausea, and abdominal distention that have worsened over the last few days. She has a large back/right flank hematoma that began four days ago. She denies fall, accidents, dysuria, hematuria, and bright red blood per rectum. On admission, IR was consulted for paracentesis. Ultrasound of the abdomen, showed cirrhotic liver morphology with associated small to moderate ascites, cholelithiasis without cholecystitis. CT of the abdomen and pelvis showed severely cirrhotic liver with large volume ascites. The patient had an ultrasound-guided paracentesis with 5.2 L pulled off. The fluid was sent, but did not indicate infection. The patient maintained a white count, so ID was consulted per GI recommendation. It appeared the patient initially had a urine infection with the culture came back negative, so the patient's antibiotics were discontinued per ID. Blood cultures were also negative. The patient then developed nausea and vomiting, so surgery was consulted after finding SBO versus ileus on the x-ray. The patient was intermittently symptomatic, but platelets remained low and she was anemic, so she was not a very good surgery candidate. She was able to tolerate her food and pain was well controlled so surgery was not an option. Prior to discharge, the patient again needed an additional paracentesis with over 4 L pulled off. After discussing discharge options with the family and the patient, they decided on hospice. Per hospice recommendation, the patient had a PleurX catheter placed so that they could maintain the cirrhosis at home versus frequent admissions to the hospital. The patient will be discharged home with family with hospice with a PleurX catheter in place. Family and the patient say they have experience with this with another family member, so they are comfortable with this procedure at home. Vital signs, stable. The patient is afebrile. At the time of discharge, the patient is tolerating food, having bowel movements and is pain free. Dictated by Lee Ann Jarrett, DANIELA MD LUIS Polanco/TEJAL /[id number]
--- NOTE | 2019-02-27 12:11 | Diagnostic Imaging Report ---
Insertion of a tunneled indwelling intraperitoneal drainage catheter (abdominal Pleurx) CLINICAL INDICATION: Ascites. Patient is going to hospice Radiologist: Uri Todd M.D. Estimated blood loss: Less than 5 mL Specimen: 4400 mL of benoit ascites was aspirated for therapeutic purposes TECHNIQUE: Informed written consent was obtained. Discussion of risks, benefits, and alternatives were made with the the patient's granddaughter. The patient expressed understanding and agreed to proceed. A universal timeout was performed prior to starting the procedure. All elements maximal sterile barrier technique was utilized for this procedure, including utilization of sterile scrub solution for skin prep, a large sterile sheet to cover the areas of the patient that were not prepped, and hand hygiene, mask, head covering, and sterile gown for performing radiologist and scrub technologist. Ultrasound of the patient's abdomen demonstrated a large amount of intra-abdominal ascites. The patient's skin was prepped and draped in the usual sterile fashion. Local anesthesia with lidocaine 1% was administered in the subcutaneous tissues along the planned subcutaneous tunnel tract. Two 1 cm incisions were made approximately 10 cm apart in the patient's right lower quadrant. A 15.5 [place] Pleurx catheter was then tunneled subcutaneously from the more superolateral incision to the more inferomedial incision. Under direct ultrasound guidance a 5 [place] Yueh catheter was advanced into the peritoneal cavity through the more inferior incision. Once the Yueh needle tip was within the peritoneal cavity the inner stylette was removed and a Hsu guidewire was inserted through the catheter into the peritoneal cavity. Ultrasound images documenting the tip of the needle within the peritoneal cavity and the wire within the peritoneal cavity were saved into PACS. Soft tissue dilators were then advanced over the guidewire and a 16 [place] peel-away sheath was placed. The guidewire was then removed and the Pleurx catheter was inserted through the peel-away sheath into the peritoneal cavity. The peel-away sheath was removed. The Pleurx catheter was then connected to a Vacutainer and ascites was aspirated for therapeutic purposes. The skin incisions were closed with absorbable Polysorb suture. Dermabond was applied to the more inferior incision. The catheter was secured with 2-0 suture and a sterile dressing was applied. The patient tolerated the procedure well without evidence of immediate complication and left the department in stable condition. IMPRESSION: Technically successful and uncomplicated placement of a right lower quadrant indwelling tunneled intraperitoneal drainage catheter (abdominal Pleurx) for management of refractory ascites. Signed by: Uri Todd MD on 02/23/2019 4:41 PM
== END 2019-02-24 12:05 | disposition hospice, home (50) | DRG 871 ==
LOC: ER 14:07 → ERHOLD 17:18 → MED/SURG3 21:28 → MED/SURG 02-19 17:33
PROVIDERS: ADMIT Internal Medicine; ATTEND Internal Medicine
PROC: 0W9G3ZX Drainage of Peritoneal Cavity, Percutaneous Approach, Diagnostic (ICD-10-PCS; principal; 2019-02-15)
PROC: 0W9G30Z Drainage of Peritoneal Cavity with Drainage Device, Percutaneous Approach (ICD-10-PCS; 2019-02-23)
DX: A41.9 Sepsis, unspecified organism (principal); E43 Unspecified severe protein-calorie malnutrition; R18.8 Other ascites; N39.0 Urinary tract infection, site not specified; N17.9 Acute kidney failure, unspecified; E87.1 Hypo-osmolality and hyponatremia; K56.7 Ileus, unspecified; K56.600 Partial intestinal obstruction, unspecified as to cause; K74.60 Unspecified cirrhosis of liver; N18.3 Chronic kidney disease, stage 3 (moderate); I12.9 Hypertensive chronic kidney disease with stage 1 through stage 4 chronic kidney disease, or unspecified chronic kidney disease; D64.9 Anemia, unspecified; Z68.28 Body mass index [BMI] 28.0-28.9, adult; E78.5 Hyperlipidemia, unspecified; Z87.891 Personal history of nicotine dependence; D69.6 Thrombocytopenia, unspecified; K80.80 Other cholelithiasis without obstruction; E87.5 Hyperkalemia; Z51.5 Encounter for palliative care
CPT/HCPCS: 32557; 36415; 49083; 71045; 74018; 74019; 74176; 74470; 76700; 76705; 78226; 78227; 80048; 80053; 80076; 81001; 81161; 81220; 82040; 82140; 82150; 82550; 82553; 82607; 82728; 82746; 83540; 83690; 83735; 84132; 84466; 84484; 85025; 85049; 85610; 86078; 86850; 86900; 86920; 86922; 87040; 87070; 87086; 87205; 87400; 88112; 88305; 89051; 93005; 94640; 96360; 97139; 99284; A9537; C1729; J0696; J1100; J1200; J2001; J2270; J2405; J2543; J2916; J7040; J7042; J7050; J7070; P9016; P9034

== ENCOUNTER → 2019-02-13 | Outpatient (CLI) | payer MEDICARE, OTHER ==
[~2019-02-13] MED LIST changes: +LEVAQUIN500 MG PO; +MAGNESIUM OXID400 MG PO; +OMEPRAZOLE40 MG PO; +PROPRANOLOL HCL20 MG PO; +SPIRONOLACTONE25 MG PO
== END ==
LOC: CT 13:47
PROVIDERS: ATTEND Internal Medicine Gastroenterology
DX: K74.60 Unspecified cirrhosis of liver (principal); K43.9 Ventral hernia without obstruction or gangrene; Z87.19 Personal history of other diseases of the digestive system